=== PATIENT | male | born 1955 | race Caucasian/White ===

== ENCOUNTER → 2016-05-26 | Outpatient (REF) | payer SELFPAY ==
[~2016-05-26] MED LIST: AMLO5TAB2 PO; ATOR1TAB21 PO; GABA300C3 PO; IBUP800T23 PO; METO12TA PO; OMEP20CA3 PO; PEG1POW PO; PERCOCET PO; ZANA4TAB PO
[2016-05-26 11:05] LABS: BASO % 0.1 % (0.0-1.0); EOS % 17.6 % (0.0-3.0); LARGE UNSTAINED CELL # 0.1 K/mm3 (0.0-0.4); LARGE UNSTAINED CELL % 1.9 % (0.0-4.0); LYMPH % 17.3 % (24.0-44.0); MEAN CORPUSCULAR HGB CONC 34.5 g/dl (32.0-36.5); MEAN CORPUSCULAR VOLUME 87.1 fl (80.0-96.0); MONO # 0.4 K/mm3 (0.0-0.8); MONO % 6.1 % (0.0-5.0); NEUTROPHILS # 3.3 K/mm3 (1.8-7.7); NEUTROPHILS % 57.1 % (36.0-66.0); PLATELET COUNT, AUTOMATED 126 k/mm3 (150-450); RED CELL DISTRIBUTION WIDTH 12.9 % (11.5-14.5); WHITE BLOOD COUNT 5.7 K/mm3 (4.0-10.0)
[2016-05-26 11:29] LABS: ERYTHROCYTE SEDIMENTATION RATE 50 mm/hr (0-20)
[2016-05-26 11:33] LABS: ANION GAP 8 MEQ/L (8-16); BLOOD UREA NITROGEN 17 MG/DL (7-18); CALCIUM LEVEL 8.1 MG/DL (8.5-10.1); CARBON DIOXIDE LEVEL 27 MEQ/L (21-32); CHLORIDE LEVEL 105 MEQ/L (98-107); CREATININE FOR GFR 0.66 MG/DL (0.70-1.30); GLOMERULAR FILTRATION RATE > 60.0 (>56); GLUCOSE, FASTING 91 MG/DL (70-105); POTASSIUM SERUM 3.4 MEQ/L (3.5-5.1); SODIUM LEVEL 140 MEQ/L (136-145)
== END ==
LOC: M LAB REF 10:40
PROVIDERS: ATTEND Internal Medicine Infectious Disease
DX: M46.40 Discitis, unspecified, site unspecified (principal)

== ENCOUNTER → 2016-06-02 | Outpatient (REF) | payer SELFPAY ==
[2016-06-02 11:27] LABS: BASO % 0.1 % (0.0-1.0); EOS # 0.6 K/mm3 (0.0-0.50); EOS % 12.2 % (0.0-3.0); LARGE UNSTAINED CELL # 0.1 K/mm3 (0.0-0.4); LARGE UNSTAINED CELL % 1.8 % (0.0-4.0); LYMPH # 0.8 K/mm3 (1.5-4.5); LYMPH % 15.1 % (24.0-44.0); MEAN CORPUSCULAR HEMOGLOBIN 30.2 pg (27.0-33.0); MEAN CORPUSCULAR HGB CONC 34.5 g/dl (32.0-36.5); MEAN CORPUSCULAR VOLUME 87.5 fl (80.0-96.0); MONO # 0.4 K/mm3 (0.0-0.8); MONO % 7.4 % (0.0-5.0); NEUTROPHILS # 3.3 K/mm3 (1.8-7.7); NEUTROPHILS % 63.5 % (36.0-66.0); PLATELET COUNT, AUTOMATED 170 k/mm3 (150-450); RED CELL DISTRIBUTION WIDTH 13.1 % (11.5-14.5); WHITE BLOOD COUNT 5.2 K/mm3 (4.0-10.0)
[2016-06-02 12:03] LABS: ANION GAP 9 MEQ/L (8-16); BLOOD UREA NITROGEN 18 MG/DL (7-18); CARBON DIOXIDE LEVEL 27 MEQ/L (21-32); CHLORIDE LEVEL 105 MEQ/L (98-107); CREATININE FOR GFR 0.68 MG/DL (0.70-1.30); ERYTHROCYTE SEDIMENTATION RATE 51 mm/hr (0-20); GLOMERULAR FILTRATION RATE > 60.0 (>56); GLUCOSE, FASTING 97 MG/DL (70-105); POTASSIUM SERUM 3.3 MEQ/L (3.5-5.1); SODIUM LEVEL 141 MEQ/L (136-145)
== END ==
LOC: M LAB REF 11:14
PROVIDERS: ATTEND Internal Medicine Infectious Disease
DX: M46.40 Discitis, unspecified, site unspecified (principal)

== ENCOUNTER → 2016-06-05 | Outpatient (REF) | payer SELFPAY | LOC: M LAB REF 09:07 | PROVIDERS: ATTEND Internal Medicine Infectious Disease | DX: M46.40 Discitis, unspecified, site unspecified (principal) ==

== ENCOUNTER → 2016-06-09 | Outpatient (REF) | payer SELFPAY ==
[~2016-06-09] MED LIST changes: +ASPI81TA85 PO; +ATOR40TA PO; +METO-346 PO; +NEUR300C PO; +VANC10005 INJ
[2016-06-09 14:55] LABS: ANION GAP 10 MEQ/L (8-16); BLOOD UREA NITROGEN 15 MG/DL (7-18); CALCIUM LEVEL 8.1 MG/DL (8.5-10.1); CARBON DIOXIDE LEVEL 27 MEQ/L (21-32); CHLORIDE LEVEL 107 MEQ/L (98-107); CREATININE FOR GFR 0.57 MG/DL (0.70-1.30); GLOMERULAR FILTRATION RATE > 60.0 (>56); GLUCOSE, FASTING 89 MG/DL (70-105); SODIUM LEVEL 144 MEQ/L (136-145)
[2016-06-09 15:07] LABS: BASO % 0.4 % (0.0-1.0); EOS # 0.6 K/mm3 (0.0-0.50); EOS % 12.9 % (0.0-3.0); LARGE UNSTAINED CELL # 0.1 K/mm3 (0.0-0.4); LARGE UNSTAINED CELL % 2.2 % (0.0-4.0); LYMPH # 0.8 K/mm3 (1.5-4.5); LYMPH % 16.8 % (24.0-44.0); MEAN CORPUSCULAR HEMOGLOBIN 29.8 pg (27.0-33.0); MEAN CORPUSCULAR HGB CONC 34.2 g/dl (32.0-36.5); MEAN CORPUSCULAR VOLUME 87.2 fl (80.0-96.0); MONO # 0.3 K/mm3 (0.0-0.8); MONO % 6.8 % (0.0-5.0); NEUTROPHILS % 60.9 % (36.0-66.0); PLATELET COUNT, AUTOMATED 162 k/mm3 (150-450); RED CELL DISTRIBUTION WIDTH 13.4 % (11.5-14.5); WHITE BLOOD COUNT 4.8 K/mm3 (4.0-10.0)
[2016-06-09 15:47] LABS: ERYTHROCYTE SEDIMENTATION RATE 55 mm/hr (0-20)
== END ==
LOC: M LAB REF 13:04
PROVIDERS: ATTEND Internal Medicine Infectious Disease
DX: M46.40 Discitis, unspecified, site unspecified (principal)

== ENCOUNTER 2016-06-10 13:13 | Inpatient (IN) | payer BC, SELFPAY ==
[~2016-06-10] VITALS: Ht 180.3 cm; Wt 101.4 kg
[~2016-06-10 13:13] MED LIST changes: -ASPI81TA85 PO; -ATOR40TA PO; -METO-346 PO; -NEUR300C PO; -VANC10005 INJ
[2016-06-10] MEDS ORDERED: MORPHINE 4 MG/ML 1ML SYRINGE As Ordered ONE ×2 (14:04→16:05)
[2016-06-10 14:30] LABS: BASO % 0.4 % (0.0-1.0); EOS # 0.6 K/mm3 (0.0-0.50); EOS % 9.7 % (0.0-3.0); LARGE UNSTAINED CELL # 0.1 K/mm3 (0.0-0.4); LYMPH # 0.8 K/mm3 (1.5-4.5); LYMPH % 12.3 % (24.0-44.0); MEAN CORPUSCULAR HEMOGLOBIN 28.8 pg (27.0-33.0); MEAN CORPUSCULAR HGB CONC 33.3 g/dl (32.0-36.5); MEAN CORPUSCULAR VOLUME 86.6 fl (80.0-96.0); MONO # 0.4 K/mm3 (0.0-0.8); MONO % 6.6 % (0.0-5.0); NEUTROPHILS # 4.3 K/mm3 (1.8-7.7); PLATELET COUNT, AUTOMATED 180 k/mm3 (150-450); RED CELL DISTRIBUTION WIDTH 13.3 % (11.5-14.5); WHITE BLOOD COUNT 6.2 K/mm3 (4.0-10.0)
[2016-06-10 14:42] LABS: ANION GAP 11 MEQ/L (8-16); BLOOD UREA NITROGEN 12 MG/DL (7-18); CALCIUM LEVEL 8.9 MG/DL (8.5-10.1); CARBON DIOXIDE LEVEL 27 MEQ/L (21-32); CHLORIDE LEVEL 105 MEQ/L (98-107); CREATININE FOR GFR 0.67 MG/DL (0.70-1.30); GLOMERULAR FILTRATION RATE > 60.0 (>56); GLUCOSE, FASTING 121 MG/DL (70-105); POTASSIUM SERUM 3.3 MEQ/L (3.5-5.1); SODIUM LEVEL 143 MEQ/L (136-145)
[2016-06-10 15:40] LABS: ERYTHROCYTE SEDIMENTATION RATE 53 mm/hr (0-20)
--- NOTE | 2016-06-10 16:26 | REP ---
MRI LUMBAR SPINE WITHOUT AND WITH CONTRAST: HISTORY: Discitis. CONTRAST: ProHance 20 mL. COMPARISON: 04/30/2016 and 05/07/2016. Decreased signal intensity on T2-weighted images is present in the L1-2 through L4-5 intervertebral discs. The discs are decreased in height. These findings are consistent with disc degeneration. A diffuse disc bulge is present at the L1-2 level. There is minimal compression of the thecal sac. The L1 nerves exit the neural foramina without compression. A diffuse disc bulge is present at the L2-3 level. There is minimal compression of the thecal sac. The L2 nerves exit the neural foramina without compression. A diffuse disc bulge is present at the L3-4 level. There is minimal compression of the thecal sac. The L3 nerves exit the neural foramina without compression. A diffuse disc bulge is present at the L4-5 level. There is hypertrophy of the ligamenta flava and posterior articulating facets. These findings produce minimal central canal stenosis. The L4 nerves exit the neural foramina without compression. Increased signal intensity on T2-weighted images is present in the L5-S1 intervertebral disc. The intervertebral disc is decreased in height. There is mild heterogeneous enhancement of the intervertebral disc and adjacent endplates of the L5 and S1 vertebral bodies. 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 Enhancing paravertebral and epidural soft tissue components are present. A diffuse disc bulge and small left paracentral and intraforaminal disc protrusion are present. There is mild compression of the thecal sac and left S1 nerve as it exits the thecal sac. There is hypertrophy of the posterior articulating facets. There is compression of the left L5 nerve in the neural foramen. The right L5 nerve exits the neural foramen without compression. The conus medullaris is normal in appearance terminating at the level of the L1 intervertebral disc. Hemangiomas are present in the T12, L1 and L4 vertebral bodies. There is an old compression fracture of the L1 vertebral body with minimal height loss. IMPRESSION: 1. Diffuse disc bulges at the L1-2 through L3-4 levels with minimal thecal sac compression. 2. Minimal central canal stenosis at the L4-5 level secondary to disc bulge, ligamentous and facet hypertrophy. 3. Findings consistent with discitis osteomyelitis at the L5-S1 level. This is associated with paravertebral and epidural enhancing soft tissue consistent with a phlegmon. A diffuse disc bulge and small left paracentral and intraforaminal disc protrusion are present. These findings produce mild compression of the thecal sac and left S1 nerve as it exits the thecal sac. Signed by Tyler Pearson MD 06/10/2016 04:31 P
[2016-06-10] MEDS ORDERED: NEUR300C PO (16:36)
[2016-06-10] MEDS ORDERED: METO-346 PO (16:36)
[2016-06-10] MEDS ORDERED: ATOR40TA PO (16:36)
[2016-06-10] MEDS ORDERED: ASPI81TA85 PO (16:36)
[2016-06-10] MEDS ORDERED: VANC10005 INJ (16:36)
[2016-06-10] MEDS ORDERED: POTASSIUM CHL PWD 20 MEQ PACKET As Ordered ONE (16:59)
[2016-06-10] MEDS ORDERED: PERCOCET 5MG/325MG TAB PO PRN (18:30)
[2016-06-10] MEDS ORDERED: PERCOCET 5MG/325MG TAB As Ordered ONE (19:15)
--- NOTE | 2016-06-10 20:07 | HPE ---
DATE OF ADMISSION: 06/10/2016 PRIMARY CARE PROVIDER: Dr. Kiser REASON FOR ADMISSION: Back pain. HISTORY OF PRESENT ILLNESS: Patient is a 61-year-old male, past medical history significant for chronic back pain recently diagnosed with discitis, hypertension, hyperlipidemia, gastroesophageal reflux disease, presented to the emergency room complaining of worsening back pain for the past 2 weeks. The patient was recently in the hospital from April 28 for about 2 weeks where he was diagnosed with discitis. He was sent home on IV antibiotics, vancomycin. He was following up with Dr. Kiser until recently when his pain started to worsen. His CRP started to trend up. He was sent to the emergency room by Dr. Kiser who saw him in the emergency room and recommended admission for back biopsy. The patient denied any fevers or chills. Denied any chest pain, palpitation. Denied any shortness of breath. Denied any nausea, vomiting or diarrhea. Denied any worsening weakness in his lower extremities. However he stated that due to pain he has been using his walker recently. Denied any paresthesias, denied any urinary or bowel incontinence or retention. He was admitted under hospitalist service. REVIEW OF SYSTEMS: 12-point review of systems obtained all of which was negative except for those mentioned above. ALLERGIES: No known drug allergies. HOME MEDICATIONS: - amlodipine 5 mg by mouth daily - atorvastatin 40 mg by mouth daily - gabapentin 300 mg three times a day - metoprolol 12.5 mg two times a day - ibuprofen 100 mg 1 tablet as needed for pain - omeprazole 20 mg 1 tablet daily - Percocet 5-325 two tablets every 6 hours as needed for pain - Zanaflex 4 mg every 8 hours as needed for pain - aspirin 81 mg daily - vancomycin IV twice a day PAST MEDICAL HISTORY: Gastroesophageal reflux disease, chronic back pain, hyperlipidemia, hypertension, discitis recently diagnosed. SURGERIES: No past surgical history. SOCIAL HISTORY: The patient quit smoking a year ago, smokes one pack a day for many years. Lives at home. No alcohol use. FAMILY HISTORY: Noncontributory. PHYSICAL EXAMINATION: Vitals: On admission blood pressure 144/91, pulse 106, respiratory rate 18, temperature 96.4+, pulse O2 97% on room air. HEENT: Pupils equal, round and reactive to light and accommodation. Neck: Supple. No jugular venous distention (JVD). Lungs clear bilaterally. Abdomen: Soft, nontender, nondistended. Cardiac: Regular rate and rhythm. Extremities: No clubbing, cyanosis or edema. Neuro: Cranial nerves II-XII grossly intact. No focal deficits. LABORATORY FINDINGS: WBC 6.2, hemoglobin 11.6, hematocrit 34.8, platelet count 180. Sodium 143, potassium 3.3, chloride 105, BUN 12, creatinine 0.67. Fasting glucose 121, magnesium pending. MRI of the lumbar spine was done in the emergency room which showed diffuse bulge in L1-L2 through L3-L4 with minimal thecal sac compression, minimal central canal stenosis at L4-L5 secondary to disc bulging and facet hypertrophy. Findings consistent with discitis osteomyelitis at L5-S1. Associated paravertebral epidural enhancing soft tissue consistent with phlegmon. Diffuse disc bulge, mild compression of the thecal sac left S1 nerve. ASSESSMENT/PLAN: 1. Discitis osteomyelitis. The patient has been on vancomycin. Dr. Kiser has been following the patient as outpatient. She sent him in for a CT guided biopsy in the morning as well as pain management. Dr. Heredia was consulted. He saw the patient in the emergency room and reviewed the imaging and did not feel that the patient had any abscess. He agreed with the plan for biopsy. At this time we will hold the patient's vancomycin dose today and put in for a CT-guided biopsy in the morning. Will continue to trend CRPs and sedimentation rate. Will consult Dr. Kiser while in the hospital for antibiotic management. 2. History of hypertension. Resume the patient's home medication. 3. History of her hyperlipidemia. Continue the patient's home medication. 4. Back pain. Will continue the patient's Percocet. Will increase dose to 10-325, one tablet every 4-6 hours as well as morphine for breakthrough pain, hold for sedation, lethargy. 5. History of gastroesophageal reflux disease. Continue the patient's omeprazole 20 mg daily. 6. DVT prophylaxis, Lovenox while in bed.
--- NOTE | 2016-06-10 20:46 | EDDOCDS ---
Physician Documentation [facility] Name: Julio Cesar Ponce Age: 61 yrs Sex: Male : 1955 Arrival Date: 06/10/2016 Time: 13:13 Bed 12 Private MD: Jonnie Kiser N. Disposition: 06/10/16 17:40 Hospitalization ordered by Yesenia Armenta for Inpatient Admission. Preliminary diagnosis are Low back pain, Osteomyelitis of vertebra, lumbosacral region - L5-S1, Discitis, unspecified, lumbosacral region - L5-S1. - Bed requested for PCU. - Status is Inpatient Admission. terence - Condition is Stable. - Problem is new. - Symptoms are unchanged. Historical: - Allergies: no known allergies; - Home Meds: 1. amlodipine 5 mg Oral tab 1 tab once daily (Last dose: 06/10/2016) 2. atorvastatin 40 mg oral tab 1 tab once daily (Last dose: 06/10/2016) 3. gabapentin 300 mg Oral cap 1 cap 3 times per day (Last dose: 06/10/2016) 4. metoprolol tartrate 12.5 mg Oral tab 1 tab 2 times per day (Last dose: 06/10/2016) 5. ibuprofen 800 mg Oral tab 1 tab RPN 6. omeprazole 20 mg Oral cpDR 1 cap once daily (Last dose: 06/10/2016) 7. Percocet 5-325 mg Oral tab 2 tabs every 6 hours (Last dose: 06/10/2016 06:00) 8. Zanaflex 4 mg Oral tab 1 tab every 8 hours (Last dose: 06/10/2016) 9. aspirin 81 mg Oral tab 1 tab once daily (Last dose: 06/10/2016) 10. Vancocin 2000mg IV BID Oral (Last dose: 06/10/2016) - PMHx: GERD; Chronic Back pain; Hypercholesterolemia; Hypertension; Infection in back; - PSHx: none; - Social history: Smoking status: Patient states former smoker of tobacco. No barriers to communication noted, The patient speaks fluent Greenlandic. - Family history: Not pertinent. - : The pt / caregiver states he / she is not on anticoagulants. Home medication list is obtained from the patient. - Exposure Risk Screening:: None identified. Vital Signs: 06/10 13:16 BP 144 / 91; Pulse 106; Resp 18 S; Temp 96.4(O); Pulse Ox 97% on R/A; Weight 101.6 kg / gr2 223.99 lbs (R); Height 5 ft. 11 in. (180.34 cm) (R); Pain 9/10; 16:33 BP 148 / 70; Pulse 87; Resp 20; Temp 97.5; Pulse Ox 97% ; Pain 6/10; jam1 19:04 BP 149 / 84; Pulse 84; Resp 18; Temp 98.4; Pulse Ox 96% ; Pain 6/10; ajs 19:56 BP 160 / 79; Pulse 86; Resp 18; Temp 99.2(O); Pulse Ox 95% on R/A; Pain 3/10; dsf 20:41 BP 154 / 82; Pulse 78; Resp 18; Temp 97.9; Pulse Ox 96% ; Pain 2/10; mlc 13:16 Body Mass Index 31.24 (101.60 kg, 180.34 cm) gr2 MDM: 14:00 Misc. Nursing Order ordered. dt4 14:00 MRI Screening Tool - Place on chart, inform RN ordered. dt4 14:00 morphine 4 mg IVP once ordered. dt4 14:01 CBC with Diff Ordered. EDMS 14:01 Basic Metabolic Profile Ordered. EDMS 14:01 CRP Ordered. EDMS 14:01 Sed Rate Ordered. EDMS 14:16 MRI LS SPINE W/O FOLL WITH CON Ordered. EDMS 14:28 MRI Screening Tool - Place on chart, inform RN complete. jf3 15:21 Financial registration complete. mm15 15:29 heparin 100units/mL flush (PICC line) 2 ml IVP once; flush each port first with 10mL of dt4 NS followed by heparin ordered. 15:52 [facility] [place] Agreement was scanned into [employer] and attached to record. mm15 16:05 morphine 4 mg IVP once ordered. dt4 16:14 BED REQUEST+ADM ordered. EDMS 16:22 ED course: SPOKE WITH DR. KISER AT THIS TIME, STATED SHE WAS IN A MEETING AND WOULD COME dt4 DOWN TO SEE THIS PT WHEN THE MEETING WAS FINISHED. . 16:31 Potassium Chloride Packet 40 mEq PO once ordered. dt4 18:50 Admission / Observation Status ordered. EDMS 18:50 2 GRAM SODIUM DIET ordered. EDMS 19:01 MAGNESIUM LEVEL Ordered. EDMS 19:14 oxyCODONE-acetaminophen 5 mg-325 mg 2 tabs PO once; admission order ordered. dsf 19:32 CBC WITH DIFFERENTIAL Ordered. EDMS 19:32 COMPLETE COMPHRENSIVE METABOLI Ordered. EDMS 19:32 MAGNESIUM LEVEL Ordered. EDMS 19:43 CT guide needle placement Ordered. EDMS 19:43 NPO FOR TEST/PROCEDURE ordered. EDMS 19:44 C REACTIVE PROTEIN QUANTITATIV Ordered. EDMS 19:44 ERYTHROCYTE SEDIMENTATION RATE Ordered. EDMS 19:53 Admission / Observation Status ordered. EDMS Administered Medications: 14:21 Drug: morphine 4 mg [morphine 4 mg/mL intravenous cartridge (1 mL)] Route: IVP; Site: jf3 Implantable Access Device; 16:17 Drug: morphine 4 mg [morphine 4 mg/mL intravenous cartridge (1 mL)] Route: IVP; Site: kc3 Implantable Access Device; 17:10 Drug: heparin 100units/mL flush (PICC line) 2 ml [heparin flush (porcine) 100 unit/mL kc3 in 0.9 % sodium chloride IV kit (2 mL)] Route: IVP; Site: Implantable Access Device; 17:10 Drug: Potassium Chloride 40 mEq [potassium chloride 20 mEq oral packet (2 packets)] kc3 Route: PO; 19:24 Drug: oxyCODONE-acetaminophen 2 tabs [oxycodone-acetaminophen 5 mg-325 mg tablet (2 dsf tabs)] Route: PO; Signatures: Dispatcher [employer] EDLA Randal Kurtz RN RN dwg Newman, Jill New RN Eric Ac, Director Medical Economics Unit ml3 Valery Padron RN RN dsf Slate, Amanda ajs McGrath, Marlynn mm15 Jessy Winslow PA-C PA-C dt4 Edy Yang RN RN jf3 Crane, Kelsi RN kc3 The chart was reviewed and I authenticate all verbal orders and agree with the evaluation and treatment provided.Corrections: (The following items were deleted from the chart) 14:16 14:01 MRI-Spine, Lumbar with contrast+MR ordered. EDMS EDMS Attachments: 15:52 [facility] [place] Agreement mm15 MTDD
--- NOTE | 2016-06-10 20:46 | EDDOCDS ---
Nurse's Notes [facility] Name: Julio Cesar Ponce Age: 61 yrs Sex: Male : 1955 Arrival Date: 06/10/2016 Time: 13:13 Bed 12 Private MD: Jonnie Kiser N. Diagnosis: Low back pain;Osteomyelitis of vertebra, lumbosacral [id number];Discitis, unspecified, lumbosacral [id number] Presentation: 06/10 13:22 Presenting complaint: Patient states: Increased low back pain for 1-2 weeks. Sent from [facility] Dr. Kiser's off ice for MRI of back, presently has PICC line for IV antibiotics for infection in low back/spine. Adult Sepsis Screening: The patient does not have new or worsening altered mentation. Patient's respiratory rate is less than 22. Systolic blood pressure is greater than 100. Patient has a qSOFA score of 0- Negative Sepsis Screen. Suicide/Homicide risk assessment- the patient denies having any suicidal and/or homicidal ideations and does not present with any other emotional, behavioral or mental health complaints. Status: Patient is not a duplicating machine servicer or dependent. Transition of care: patient was received from Dr. Kiser's office. 13:22 Acuity: LESLEY Level 3 [facility] 13:22 Method Of Arrival: Wheelchair [facility] Triage Assessment: 13:30 General: Appears in no apparent distress. Pain: Pain currently is 8 out of 10 on a pain dwg scale. HIV screening NA for this visit Offered previously. Historical: - Allergies: no known allergies; - Home Meds: 1. amlodipine 5 mg Oral tab 1 tab once daily (Last dose: 06/10/2016) 2. atorvastatin 40 mg oral tab 1 tab once daily (Last dose: 06/10/2016) 3. gabapentin 300 mg Oral cap 1 cap 3 times per day (Last dose: 06/10/2016) 4. metoprolol tartrate 12.5 mg Oral tab 1 tab 2 times per day (Last dose: 06/10/2016) 5. ibuprofen 800 mg Oral tab 1 tab RPN 6. omeprazole 20 mg Oral cpDR 1 cap once daily (Last dose: 06/10/2016) 7. Percocet 5-325 mg Oral tab 2 tabs every 6 hours (Last dose: 06/10/2016 06:00) 8. Zanaflex 4 mg Oral tab 1 tab every 8 hours (Last dose: 06/10/2016) 9. aspirin 81 mg Oral tab 1 tab once daily (Last dose: 06/10/2016) 10. Vancocin 2000mg IV BID Oral (Last dose: 06/10/2016) - PMHx: GERD; Chronic Back pain; Hypercholesterolemia; Hypertension; Infection in back; - PSHx: none; - Social history: Smoking status: Patient states former smoker of tobacco. No barriers to communication noted, The patient speaks fluent Romansh. - Family history: Not pertinent. - : The pt / caregiver states he / she is not on anticoagulants. Home medication list is obtained from the patient. - Exposure Risk Screening:: None identified. Screenin:02 Screening information is obtained from the patient. Primary language is Romansh. Fall jam1 risk: No risks identified. Assistance ADL's: requires no assistance with activities of daily living. Abuse/DV Screen: The patient / caregiver reports he/she is: not in a situation that causes fear, pain or injury. Nutritional screening: No deficits noted. Exposure Risk Screening: None identified. Advance Directives: Currently, there is no health care proxy. There is no active DNR order. There is no living will. There is no Power of Direct Mail Coordinator. Advance directive information has not previously been placed in an [facility] medical record. Further advance directive information is declined. home support is adequate. Assessment: 14:28 Adult Sepsis Screening: The patient does not have new or worsening altered mentation. jf3 Patient's respiratory rate is less than 22. Systolic blood pressure is greater than 100. Patient has a qSOFA score of 0- Negative Sepsis Screen. General: Appears uncomfortable, Behavior is cooperative. Pain: Location: lumbar area, sacrum, left low back and right low back Pain currently is 10 out of 10 on a pain scale. Neurological: Level of Consciousness is awake, alert, Oriented to person, place, time. Cardiovascular: Capillary refill < 3 seconds Heart tones S1 S2 present Chest pain is denied. Respiratory: Airway is patent Respiratory effort is even, unlabored, Respiratory pattern is regular, symmetrical, Breath sounds are clear bilaterally. Denies shortness of breath. GI: Abdomen is non- distended Bowel sounds present X 4 quads. Abd is soft and non tender X 4 quads. Denies nausea, vomiting. Derm: Skin is normal. 16:17 General: Appears uncomfortable, Behavior is appropriate for age, cooperative. Pain: kc3 Location: right low back. Neurological: Level of Consciousness is awake, alert, obeys commands, Oriented to person, place, time. Respiratory: Airway is patent Respiratory effort is even, unlabored. Derm: Skin is pink, warm & dry. 17:20 General: Dr. Kiser in examining patient . dsf 17:36 General: Appears in no apparent distress, Behavior is appropriate for age, cooperative. dsf Pain: Location: sacrum and lumbar area. Neurological: Level of Consciousness is awake, alert. Cardiovascular: Capillary refill < 3 seconds. Respiratory: Airway is patent Respiratory effort is even, unlabored, Respiratory pattern is regular, symmetrical. Derm: Skin is pink, warm & dry. 19:24 General: Dr. Heredia in room examining patient . dsf 20:02 General: Appears in no apparent distress, comfortable, Behavior is cooperative. mlc General: pt given water. call light in reach. SO at bedside. Neurological: Level of Consciousness is awake, alert, Oriented to person, place, time. Respiratory: Airway is patent Respiratory effort is even, unlabored, Respiratory pattern is regular. Derm: Skin is pink, warm & dry. 20:02 Cardiovascular: Rhythm is regular. mlc 20:41 General: Appears in no apparent distress, comfortable, Behavior is cooperative. Pain: [facility] [place] currently is 2 out of 10 on a pain scale. Neurological: Level of Consciousness is awake, alert, Oriented to person, place, time. Respiratory: Airway is patent Respiratory effort is even, unlabored, Respiratory pattern is regular. Vital Signs: 13:16 BP 144 / 91; Pulse 106; Resp 18 S; Temp 96.4(O); Pulse Ox 97% on R/A; Weight 101.6 kg gr2 (R); Height 5 ft. 11 in. (180.34 cm) (R); Pain 9/10; 16:33 BP 148 / 70; Pulse 87; Resp 20; Temp 97.5; Pulse Ox 97% ; Pain 6/10; jam1 19:04 BP 149 / 84; Pulse 84; Resp 18; Temp 98.4; Pulse Ox 96% ; Pain 6/10; ajs 19:56 BP 160 / 79; Pulse 86; Resp 18; Temp 99.2(O); Pulse Ox 95% on R/A; Pain 3/10; dsf 20:41 BP 154 / 82; Pulse 78; Resp 18; Temp 97.9; Pulse Ox 96% ; Pain 2/10; mlc 13:16 Body Mass Index 31.24 (101.60 kg, 180.34 cm) gr2 Vitals: 13:16 Log In Time: June 10, 2016 at 13:16. gr2 ED Course: 13:16 Patient visited by Giulia Francois. gr2 13:16 Jonnie Kiser is Private Physician. gr2 13:16 Patient moved to Waiting gr2 13:17 Patient visited by Giulia Francois. gr2 13:17 Patient moved to Pre RCE gr2 13:25 Triage Initiated dwg 13:38 Patient moved to Triage 2 dwg 13:44 [facility]C [facility] dt4 13:44 Cash Merritt MD is Attending Physician. dt4 13:44 Patient visited by Jessy Winslow PA-C. dt4 13:58 Patient moved to I4 / M4 srm 14:02 Pt greeted and oriented to ED. Patient advised of names of staff involved in care, jam1 location of call calderon, wait times and NPO status. Patient has correct armband on for positive identification. Placed in gown. Bed in low position. Call light in reach. Side rails up X2. Adult w/ patient. Door closed. 14:28 The patient / caregiver is instructed regarding the plan of care and ED course. jf3 14:28 Accessed PICC line in patient's right arm. Clean & dry. Dressing intact. Good blood jf3 return. Flushes easily. No procedures done that require assistance. 14:31 Patient visited by Edy Yang RN. jf3 14:49 Patient moved to MRI dsf 15:43 Patient moved to I4 / M4 jam1 15:52 [facility] [place] [facility] Payment Agreement was scanned into [employer] and attached to record. mm15 16:17 Patient visited by Negin Armenta RN. kc3 16:33 MRI LS SPINE W/O FOLL WITH CON Returned. EDMS 17:11 Patient visited by Negin Armenta RN. kc3 17:26 Patient visited by Jessy Winslow PA-C. dt4 17:37 Patient visited by Valery Padron RN. dsf 17:39 Rosalie Armentasanthosh is Hospitalizing Provider. dt4 18:56 Patient visited by Amy Goncalves. ajs 19:02 Patient visited by Kelli Lund RN. af2 19:05 Patient visited by Amy Goncalves. ajs 19:24 Patient visited by Valery Padron RN. dsf 19:24 MAGNESIUM LEVEL Sent. dsf 19:56 Roxanne Rojas,MOLINA is Primary Nurse. ajs 19:56 Lise Anguiano RN is Primary Nurse. ajs 19:56 Patient moved to 12 ajs 19:56 Report given to Lise AUGUSTE. dsf 20:03 Patient visited by Lise Anguiano RN. mlc 20:08 Primary Nurse role handed off by Roxanne Rojas RN sls1 20:08 Patient visited by Valery Padron RN. dsf 20:35 Patient visited by Lise Anguiano RN. mlc Administered Medications: 14:21 Drug: morphine 4 mg [morphine 4 mg/mL intravenous cartridge (1 mL)] Route: IVP; Site: 3 Implantable Access Device; 16:17 Drug: morphine 4 mg [morphine 4 mg/mL intravenous cartridge (1 mL)] Route: IVP; Site: kc3 Implantable Access Device; 17:10 Drug: heparin 100units/mL flush (PICC line) 2 ml [heparin flush (porcine) 100 unit/mL kc3 in 0.9 % sodium chloride IV kit (2 mL)] Route: IVP; Site: Implantable Access Device; 17:10 Drug: Potassium Chloride 40 mEq [potassium chloride 20 mEq oral packet (2 packets)] kc3 Route: PO; 19:24 Drug: oxyCODONE-acetaminophen 2 tabs [oxycodone-acetaminophen 5 mg-325 mg tablet (2 dsf tabs)] Route: PO; Output: 17:35 Urine: 150.00ml (Voided); Total: 150.00ml. dsf Order Results: Lab Order: CBC with Diff; SPEC'M 06/10/16 14:16 Test: WHITE BLOOD COUNT; Value: 6.2; Range: 4.0-10.0; Units: K/mm3; Status: F Test: RED BLOOD COUNT; Value: 4.02; Range: 4.30-6.10; Abnormal: Below low normal; Units: M/mm3; Status: F Test: HEMOGLOBIN; Value: 11.6; Range: 14.0-18.0; Abnormal: Below low normal; Units: g/dl; Status: F Test: HEMATOCRIT; Value: 34.8; Range: 42.0-52.0; Abnormal: Below low normal; Units: %; Status: F Test: MEAN CORPUSCULAR VOLUME; Value: 86.6; Range: 80.0-96.0; Units: fl; Status: F Test: MEAN CORPUSCULAR HEMOGLOBIN; Value: 28.8; Range: 27.0-33.0; Units: pg; Status: F Test: MEAN CORPUSCULAR HGB CONC; Value: 33.3; Range: 32.0-36.5; Units: g/dl; Status: F Test: RED CELL DISTRIBUTION WIDTH; Value: 13.3; Range: 11.5-14.5; Units: %; Status: F Test: PLATELET COUNT, AUTOMATED; Value: 180; Range: 150-450; Units: k/mm3; Status: F Test: NEUTROPHILS %; Value: 69.0; Range: 36.0-66.0; Abnormal: Above high normal; Units: %; Status: F Test: LYMPH %; Value: 12.3; Range: 24.0-44.0; Abnormal: Below low normal; Units: %; Status: F Test: MONO %; Value: 6.6; Range: 0.0-5.0; Abnormal: Above high normal; Units: %; Status: F Test: EOS %; Value: 9.7; Range: 0.0-3.0; Abnormal: Above high normal; Units: %; Status: F Test: BASO %; Value: 0.4; Range: 0.0-1.0; Units: %; Status: F Test: LARGE UNSTAINED CELL %; Value: 2.0; Range: 0.0-4.0; Units: %; Status: F Test: NEUTROPHILS #; Value: 4.3; Range: 1.8-7.7; Units: K/mm3; Status: F Test: LYMPH #; Value: 0.8; Range: 1.5-4.5; Abnormal: Below low normal; Units: K/mm3; Status: F Test: MONO #; Value: 0.4; Range: 0.0-0.8; Units: K/mm3; Status: F Test: EOS #; Value: 0.6; Range: 0.0-0.50; Abnormal: Above high normal; Units: K/mm3; Status: F Test: BASO #; Value: 0.0; Range: 0.0-0.2; Units: K/mm3; Status: F Test: LARGE UNSTAINED CELL #; Value: 0.1; Range: 0.0-0.4; Units: K/mm3; Status: F Lab Order: Basic Metabolic Profile; [facility] 06/10/16 14:16 Test: GLUCOSE, FASTING; Value: 121; Range: 70-105; Abnormal: Above high normal; Units: MG/DL; Status: F Test: BLOOD UREA NITROGEN; Value: 12; Range: 7-18; Units: MG/DL; Status: F Test: CREATININE FOR GFR; Value: 0.67; Range: 0.70-1.30; Abnormal: Below low normal; Units: MG/DL; Status: F Test: GLOMERULAR FILTRATION RATE; Value: > 60.0; Range: >56; Status: F Test: SODIUM LEVEL; Value: 143; Range: 136-145; Units: MEQ/L; Status: F Test: POTASSIUM SERUM; Value: 3.3; Range: 3.5-5.1; Abnormal: Below low normal; Units: MEQ/L; Status: F Test: CHLORIDE LEVEL; Value: 105; Range: 98-107; Units: MEQ/L; Status: F Test: CARBON DIOXIDE LEVEL; Value: 27; Range: 21-32; Units: MEQ/L; Status: F Test: ANION GAP; Value: 11; Range: 8-16; Units: MEQ/L; Status: F Test: CALCIUM LEVEL; Value: 8.9; Range: 8.5-10.1; Units: MG/DL; Status: F Test Note: ; Units are mL/min/1.73 m2 Chronic Kidney Disease Staging per NKF: Stage I & II GFR >=60 Normal to Mildly Decreased Stage III GFR 30-59 Moderately Decreased Stage IV GFR 15-29 Severely Decreased Stage V GFR <15 Very Little GFR Left ESRD GFR <15 on SIGNING AGENT Lab Order: CRP; SPEC'M 06/10/16 14:16 Test: C REACTIVE PROTEIN QUANTITATIV; Value: 2.27; Range: 0.00-0.30; Abnormal: Above high normal; Units: MG/DL; Status: F Lab Order: Sed Rate; SPEC'M 06/10/16 14:16 Test: ERYTHROCYTE SEDIMENTATION RATE; Value: 53; Range: 0-20; Abnormal: Above high normal; Units: mm/hr; Status: F Lab Order: MAGNESIUM LEVEL; SPEC'M 06/10/16 19:20 Test: MAGNESIUM LEVEL; Value: 1.5; Range: 1.8-2.4; Abnormal: Below low normal; Units: MG/DL; Status: F Radiology Order: MRI LS SPINE W/O FOLL WITH CON Test: MRI LS SPINE W/O FOLL WITH CON REASON FOR EXAMINATION: low back pain, in treatment for discitis; MRI LUMBAR SPINE WITHOUT AND WITH CONTRAST:; ; HISTORY: Discitis.; ; CONTRAST: ProHance 20 mL.; ; COMPARISON: 04/30/2016 and 05/07/2016.; ; Decreased signal intensity on T2-weighted images is present in the L1-2 through; L4-5 intervertebral discs. The discs are decreased in height. These findings are; consistent with disc degeneration.; ; A diffuse disc bulge is present at the L1-2 level. There is minimal compression; of the thecal sac. The L1 nerves exit the neural foramina without compression.; ; A diffuse disc bulge is present at the L2-3 level. There is minimal compression; of the thecal sac. The L2 nerves exit the neural foramina without compression.; ; A diffuse disc bulge is present at the L3-4 level. There is minimal compression; of the thecal sac. The L3 nerves exit the neural foramina without compression.; ; A diffuse disc bulge is present at the L4-5 level. There is hypertrophy of the; ligamenta flava and posterior articulating facets. These findings produce minimal; central canal stenosis. The L4 nerves exit the neural foramina without; compression.; ; Increased signal intensity on T2-weighted images is present in the L5-S1; intervertebral disc. The intervertebral disc is decreased in height. There is; mild heterogeneous enhancement of the intervertebral disc and adjacent endplates; of the L5 and S1 vertebral bodies. These findings are consistent with discitis; osteomyelitis. Enhancing paravertebral and epidural soft tissue components are; present. A diffuse disc bulge and small left paracentral and intraforaminal disc; protrusion are present. There is mild compression of the thecal sac and left S1; nerve as it exits the thecal sac. There is hypertrophy of the posterior; articulating facets. There is compression of the left L5 nerve in the neural; foramen. The right L5 nerve exits the neural foramen without compression.; ; The conus medullaris is normal in appearance terminating at the level of the L1; intervertebral disc. Hemangiomas are present in the T12, L1 and L4 vertebral; bodies. There is an old compression fracture of the L1 vertebral body with; minimal height loss.; ; IMPRESSION:; ; 1. Diffuse disc bulges at the L1-2 through L3-4 levels with minimal thecal sac; compression.; ; 2. Minimal central canal stenosis at the L4-5 level secondary to disc bulge,; ligamentous and facet hypertrophy.; ; 3. Findings consistent with discitis osteomyelitis at the L5-S1 level. This is; associated with paravertebral and epidural enhancing soft tissue consistent with; a phlegmon. A diffuse disc bulge and small left paracentral and intraforaminal; disc protrusion are present. These findings produce mild compression of the; thecal sac and left S1 nerve as it exits the thecal sac.; ; ; Signed by; Tyler Pearson MD 06/10/2016 04:31 P; Outcome: 17:40 Decision to Hospitalize by Provider. dt4 20:34 Admission hand-off: Report Faxed Fax receipt verified by MOLINA Castanon states pt can come to [facility] [place] in 15 minutes. 20:41 Discharge Assessment: Patient awake, alert and oriented x 3. No cognitive and/or mlc functional deficits noted. Patient verbalized understanding of disposition instructions. patient administered narcotics - yes. Patient was admitted to the hospital or transferred to another facility. The following High Risk Discharge criteria are identified: None. Admitted to PCU accompanied by nurse, accompanied by tech, via stretcher, on monitor, with chart. Condition: good Condition: stable. CT Study completed. Property sent home with patient. 20:45 Patient left the ED. may Signatures: Dispatcher [facility] [employer] Randal Kaufman RN RN dwg Evita Zimmerman, RN RN srm Bedolla, Leeanne Ramirez, RN RN Dora To, LANGUAGE INTERPRETER LANGUAGE INTERPRETER jam1 Valery Padron,RN RN jatinder Goncalves, Zoya Pedro, RN RN sls1 Giulia Francois 2 Elvie Salgado mm15 Lise Anguiano,RN RN mlc Goldy, Jessy, PA-C PA-C dt4 Kelli Lund,RN RN af2 Negin Armenta,RN RN kc3 Edy Yang,RN RN jf3 MTDD
[2016-06-10 20:56] VITALS: BP 156/85
[2016-06-10] MEDS: tiZANidine 4 MG TAB PO SCH (21:00)
[2016-06-10] MEDS: GABAPENTIN 300 MG CAP PO SCH (21:39)
[2016-06-10] MEDS: ATORVASTATIN 20 MG TAB PO SCH (21:39)
[2016-06-10] MEDS: METOPROLOL TART 12.5 MG PER 1/2 TAB PO SCH (21:39)
[2016-06-10] MEDS: PERCOCET 5MG/325MG TAB PO PRN (23:08)
[2016-06-10 23:44] VITALS: BP 145/78
--- NOTE | 2016-06-11 01:11 | CR ---
DATE OF CONSULTATION: 06/10/2016 The patient was seen in the emergency room as requested by Dr. Yesenia Armenta. I have seen him in April for severe pain in his low back and radicular pain since getting hurt at work, which exacerbated his chronic low back pain. The patient is presenting essentially the same picture as he presented on 04/30/2016. Findings suggestive of discitis, though previously he had only soft radicular findings, though clinical picture was always consistent with discitis , no clear cut diagnosis established for several days, till his work up became positive for discitis and he was treated accordingly and empirically with antibiotics by Rashel Valle. . Patient said he did start improving since injuring his back, and while on antibiotics. injury, and felt so good that hje could play golf. His symptoms returned and now the pain is, he claims, worse than ever. He once again appears to be in severe agony and turning and tossing in his stretcher bed in the emergency room. Patient claimed most of it has been in the low back. It will get worse with any movement at the lumbosacral spine or even slight rolling over in bed can cause marked exacerbation of pain. Occasionally, he would notice radiating pain down the posterolateral aspect of his thighs on either side. PAST MEDICAL HISTORY: Unchanged and essentially unremarkable according to him and his except for history of tobacco and alcohol abuse in the past. PREADMISSION MEDICATIONS: Per EHR. ALLERGIES: He denies any. PHYSICAL EXAMINATION: On examination, he was found to be awake and alert, oriented times three. Pupils are equal and reactive. Extraocular movements are full, though once again coarse. I was able to get him off the stretcher and he took few steps, though complained of pain in his low back. Straight leg raising and foraminal compression tests are negative on either side. The left ankle jerk is absent and he has mild L5-S1 deficits, more so on the left. There is moderate paraspinal spasm as before. The left ankle jerk is now absent. The right is diminished. Remaining deep tendon reflexes are nearly symmetrical and brisk and as before there were slow brachial radial reflexes and once again he denies any pertinent symptoms pertaining to cervical spondylosis, radiculopathy or myelopathy. He continues to show intermittent bilateral josse inattention and has mild cerebellar decompensation with occasional dysrhythmia, dysmetria and visual overshooting. Plantars remain downgoing. There is no clonus or sensory level. MRI shows marked worsening of his pathology at L5-S1. It appears he has an inflammatory phlegmon extending into the canal along with focal herniation of the disc on the left at L5-S1, which is worse than in the past. There is also significant inflammatory tissue with marked enhancement intervertebrally, mostly on the left side displacing the psoas muscle. There is considerable enhancement along the disc, particularly on the left and this is causing a significant area of lateral recess and lateral recess canal stenosis. IMPRESSION: 1. Discitis and osteomyelitis L5-S. 2. Lumbar spondylosis. 3. Cervical spondylosis. 4. Obesity. PLAN AND RECOMMENDATIONS: Various options were discussed with the patient. I gave him the option of surgery to clean the epidural phlegmon and obtain culture. Patient states he does not like surgery, though he is willing to have a percutaneous aspiration or biopsy and he says if that does not help or is unable to get a tissue diagnosis, he will consider going for surgery, though he and his understand guarded prognosis and grave outlook and the hazardous nature of the surgery, which would be decompression at least at L5-S1 on the left. he understood, my rationale, and scope of surgical exploration, and is aware of all risks and possible sequel associated with such a procedure I would admit in the progressive care unit (PCU) with frequent neurological and vital sign checks, at least every 2 hours and will request to notify me if there is any change. His bladder is somewhat palpable and thus would also get a postvoid bladder scan. I texted my recommendations to Drs. Kiser and Yesenia Armenta. Thank you very much for letting me evaluate this patient. Should you have any questions, please do not hesitate to call. OWEN
--- NOTE | 2016-06-11 02:57 | CR ---
DATE OF CONSULTATION: 06/10/2016 I was asked to consult by the emergency room provider for evaluation of worsening spondylodiscitis. HISTORY OF PRESENT ILLNESS: Mr. Ponce is a 61-year-old gentleman who was hospitalized from 04/29 until 05/16 with spondylodiscitis. Initially, the patient came to the hospital with severe acute low back pain and fever. It took about a week before discitis showed up on his MRI. He was treated with intravenous (IV) antibiotics, initially Rocephin and then he received vancomycin which he has been receiving since at least 05/09. He was discharged home on 05/16 walking with a walker with tolerable pain. He continued to improve until about couple weeks ago when he started noticing more worsening pain. Initially, he had stopped taking the Percocet then he started using it again. He was depending more and more on his walker and today he stated his pain was like 7/10 and could not tolerate any more pain. He was taking ibuprofen 600, Tylenol and two Percocet today without relief. He was told by our triage nurse in the office to come to the emergency room to be evaluated. He had an MRI done in the emergency room (ER), which showed worsening spondylodiscitis at L5-S1. He denied any nausea, vomiting or diarrhea. He had no fever or chills. His lower extremity strength is stable, but he was having severe pain intermittently radiated to the right and the left, more so to the right side to then all the way to the knee. He denied any urinary or bowel incontinence or retention. He had been seen in consultation by Dr. Heredia prior admission and Dr. Heredia was consulted today in the emergency room as well. PAST MEDICAL HISTORY: Gastroesophageal reflux disease, chronic back pain usually not more than a 1/10 for which he never took too many medications, hyperlipidemia, hypertension, L5-S1 discitis diagnosed in April 2016 that has kept him out of work. PAST SURGICAL HISTORY: Negative. SOCIAL HISTORY: Quit smoking a year ago. He smoked a pack a day for many years. He drank alcohol regularly, 3-4 beers a day, but not in the past 6 weeks. He lives at home with his . He has children. 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 ALLERGIES: No known drug allergies. MEDICATIONS: - amlodipine 5 mg daily - aspirin 81 mg by mouth daily - Prilosec 20 mg by mouth daily - Lipitor 40 mg by mouth nightly - gabapentin 300 mg three times a day - metoprolol 12.5 mg by mouth twice a day - Zanaflex 4 mg by mouth three times a day - ibuprofen 800 mg by mouth every 6 hours as needed - Percocet two tablets every 4 hours as needed - morphine 2 mg IV every 4 hours as needed LABORATORY DATA: White count is 6.2, hemoglobin 11.6, hematocrit 34.8, platelets 180, 69% neutrophils, 12% lymphocytes, 6% monocytes. ESR is 53. Sodium 143, potassium 3.3, chloride 105, bicarbonate 27, BUN 12, creatinine 0.67, glucose 121, calcium 8.9, magnesium 1.5, CRP 2.27. MRI discussed with Dr. Pearson shows findings consistent with discitis, osteomyelitis at L5-S1. This is associated with a paravertebral and epidural enhancing soft tissue consistent with a phlegmon. According to Dr. Pearson, there is nothing to be drained, There is a diffuse disc bulge and small left paracentral disc protrusion present. These findings are producing mild compression of thecal sac and left S1 nerve root as well. Minimal central canal stenosis at L4-L5 secondary to disc bulge. PHYSICAL EXAMINATION: He is a healthy looking gentleman in no acute distress, but in a lot of pain, especially when asked to sit up in the bed. He was in tears from excruciating pain. Temperature is 97.5, blood pressure 148/78, pulse 87, respirations 20, oxygen saturation 97% on room air. Heart: Normal S1, S2. No murmurs, rubs or gallops. Lungs are clear. No wheezes, rales or rhonchi. Abdomen: Obese, soft, nontender. No visceromegaly. Back: No costovertebral angle (CVA) tenderness, significant L5-S1 tenderness. Extremities: Motor strength is fairly good. There is some giveaway weakness due to pain, but strength is fairly normal. He has positive straight leg raising on both sides at around 30, 40 degrees. IMPRESSION: This is a 61-year-old gentleman who has been on intravenous (IV) antibiotics for at least now 5 weeks with a combination of ceftriaxone and followed by IV vancomycin at a dose of 1.5 grams every 12 hours. He was admitted with worsening back pain and radiculopathy. The patient's CRP is stable between 1.8 and 2.2. His sedimentation rate has remained around 50s, but clinically he has deteriorated, especially with pain. That could be related to compression of nerve roots, worsening discitis or degenerative disc disease as well. PLAN: Admit the patient for pain management. Schedule a CT-guided biopsy of the phlegmon and/or disc space to make sure there is no pathogen that has not been covered by vancomycin, although I would not expect that to be the case as he clinically definitely improved over the past 4 weeks. If the patient has methicillin-susceptible Staphylococcus aureus (MSSA) on culture, he would benefit from use of a beta lactam instead, such as cefazolin or nafcillin, which would be ideal coverage for MSSA instead of vancomycin. Case has been discussed with Dr. Armenta. She will schedule CT-guided biopsy in the morning. Aerobic and anaerobic culture should be sent. Consult Dr. Heredia who already saw him in the emergency room (ER).
[2016-06-11] MEDS: PERCOCET 5MG/325MG TAB PO PRN ×5 (03:02→20:28)
[2016-06-11 06:18] VITALS: BP 154/86
[2016-06-11 06:49] LABS: BASO % 0.6 % (0.0-1.0); EOS # 0.7 K/mm3 (0.0-0.50); EOS % 12.1 % (0.0-3.0); LARGE UNSTAINED CELL # 0.1 K/mm3 (0.0-0.4); LARGE UNSTAINED CELL % 1.3 % (0.0-4.0); LYMPH # 1.3 K/mm3 (1.5-4.5); LYMPH % 19.3 % (24.0-44.0); MEAN CORPUSCULAR HEMOGLOBIN 28.8 pg (27.0-33.0); MEAN CORPUSCULAR HGB CONC 32.5 g/dl (32.0-36.5); MEAN CORPUSCULAR VOLUME 88.6 fl (80.0-96.0); MONO # 0.4 K/mm3 (0.0-0.8); NEUTROPHILS # 3.6 K/mm3 (1.8-7.7); NEUTROPHILS % 59.7 % (36.0-66.0); PLATELET COUNT, AUTOMATED 179 k/mm3 (150-450); RED CELL DISTRIBUTION WIDTH 14.2 % (11.5-14.5); WHITE BLOOD COUNT 6.1 K/mm3 (4.0-10.0)
[2016-06-11 07:23] LABS: ALBUMIN 3.1 GM/DL (3.2-5.2); ALBUMIN/GLOBULIN RATIO 0.91 (1.00-1.93); ALKALINE PHOSPHATASE 92 U/L (45-117); ALT/SGPT 26 U/L (12-78); ANION GAP 8 MEQ/L (8-16); AST/SGOT 10 U/L (15-37); BILIRUBIN,TOTAL 0.4 MG/DL (0.2-1.0); BLOOD UREA NITROGEN 11 MG/DL (7-18); CALCIUM LEVEL 8.3 MG/DL (8.5-10.1); CARBON DIOXIDE LEVEL 29 MEQ/L (21-32); CHLORIDE LEVEL 103 MEQ/L (98-107); CREATININE FOR GFR 0.71 MG/DL (0.70-1.30); GLOMERULAR FILTRATION RATE > 60.0 (>56); GLUCOSE, FASTING 92 MG/DL (70-105); MAGNESIUM LEVEL 1.4 MG/DL (1.8-2.4); POTASSIUM SERUM 3.5 MEQ/L (3.5-5.1); SODIUM LEVEL 140 MEQ/L (136-145); TOTAL PROTEIN 6.5 GM/DL (6.4-8.2)
[2016-06-11 07:26] LABS: ERYTHROCYTE SEDIMENTATION RATE 59 mm/hr (0-20)
[2016-06-11] MEDS ORDERED: POTASSIUM CHLORIDE 10 MEQ SR TABLET PO ONE (07:30)
[2016-06-11 08:00] VITALS: BP 142/83
[2016-06-11] MEDS: ASPIRIN 81 MG ENTERIC TAB PO SCH (09:00)
[2016-06-11] MEDS: MAG SULF 1GM/100ML (MAG RUN) 1 GM in APPROPRIATE DILUENT 1 EA IV SCH ×2 (09:23→10:38)
[2016-06-11] MEDS: OMEPRAZOLE 20 MG CAP PO SCH (09:24)
[2016-06-11] MEDS: tiZANidine 4 MG TAB PO SCH ×3 (09:24→20:27)
[2016-06-11] MEDS: GABAPENTIN 300 MG CAP PO SCH ×3 (09:24→20:17)
[2016-06-11] MEDS: METOPROLOL TART 12.5 MG PER 1/2 TAB PO SCH ×2 (09:25→20:17)
[2016-06-11] MEDS: amLODIPine 5 MG TAB PO SCH (09:25)
[2016-06-11 12:10] VITALS: BP 134/82
[2016-06-11] MEDS ORDERED: LIDOCAINE 1% MDV 20ML VIAL As Ordered ONE (13:49)
[2016-06-11 16:00] VITALS: BP 134/82
--- NOTE | 2016-06-11 16:18 | REP ---
CT GUIDED L5-S1 DISC BIOPSY: The procedure was performed under the personal supervision of Dr. Chambers. The risks and benefits of the procedure were explained to the patient and informed consent was obtained. The L5-S1 disc space was localized using CT guidance. The skin was prepped and draped in a sterile fashion. 1% Xylocaine was used as a local anesthetic. Using CT guidance a 19/20-gauge coaxial needle biopsy system was inserted and then advanced into the disc. A few drops of red colored fluid was withdrawn and sent to the lab. The patient tolerated the procedure well and there were no immediate complications. Reviewed by ALEXI Sifuentes 06/11/2016 04:56 PEdited and Signed by Tigre Chambers MD 06/11/2016 05:30 P
--- NOTE | 2016-06-11 18:21 | IPN ---
DATE: 06/11/2016 SUBJECTIVE: Patient seen and examined. Denies any fever or chills. Reported back pain worsened with movement. Denies any numbness or tingling sensation. Denies any lower extremity weakness. Denies any incontinence. Denies any chest pain, pressure, discomfort. VITAL SIGNS: Temperature 96.4, pulse 75, respirations 18, blood pressure 142/83, pulse oximetry 95% on room air. LABORATORY DATA: WBC 6.1, hemoglobin and hematocrit 11.1 over 34.1, platelets 179. Chemistry: Sodium 140, potassium 3.5, chloride 103, bicarbonate 29, BUN 11, creatinine 0.71. PHYSICAL EXAMINATION: GENERAL: Patient alert and oriented times three in no acute distress. Obese. Appears comfortable. HEENT: Normocephalic, atraumatic. Pupils equal, round, and reactive bilaterally. NECK: Supple. PULMONARY: Bilaterally clear to auscultation. CARDIAC: Regular rate and rhythm. Normal S1, S2. ABDOMEN: Soft, nontender, nondistended. EXTREMITIES: No clubbing, cyanosis or edema. NEUROLOGIC: Cranial nerves II through XII grossly intact. No focal deficits. ASSESSMENT AND PLAN: This is a 61-year-old male patient with underlying medical history of chronic back pain, recently diagnosed discitis, treated with vancomycin as outpatient, hypertension, dyslipidemia, gastroesophageal reflux disease (GERD), who presented to the emergency room with worsening back pain. 1. Discitis, osteomyelitis. The patient has been on vancomycin. Dr. Kiser has been following the patient as outpatient. Infectious disease, Dr. Kiser, consulted. Recommended CT-guided biopsy. Dr. Heredia has also been consulted from neurosurgery. Surgical option was discussed with the patient. The patient felt that he would like to followup with CT-guided biopsy and conservative management first prior to attempting surgery, given the risks involved, and Dr. Heredia has showed after reviewing the image, that there is no abscess. Followup erythrocyte sedimentation rate (ESR) and C-reactive protein (CRP) appreciated. Holding antibiotics for CT-guided biopsy. Dr. Heredia would like to follow the patient for neurologic checks every two hours. Bladder scan to followup residuals. 2. History of hypertension. Continue home medication. 3. Dyslipidemia. Continue home medication. 4. Back pain. Continue pain medication as ordered. 5. History of gastroesophageal reflux disease (GERD). Continue proton pump inhibitor (PPI). 6. Deep venous thrombosis (DVT) prophylaxis. Will place the patient on heparin subcutaneous. DISPOSITION: Pending infectious disease cultures and neurosurgery's final recommendation.
--- NOTE | 2016-06-11 18:50 | PHACANCOPD ---
PHARMACY VANCOMYCIN DOSING Pt Demographics Demographics Patient Age:61 , Weight:103.300 , Gender: male Adjusted Body Weight Events Past 24 Hours Events Past 24 Hours: NO: Change in CrCl, Dialysis, Diuretic Therapy, Elevation in WBC, Fever, Other, Pending Diagnostics, Pending Procedures Vancomycin Vancomycin Target Ranges: 15-20 mcg/ml Vancomycin Load Y/N: Yes Load Dose Date Time Vancomycin Load Dose: 2GM Date: 06/11/16 Time: 20:00 Vancomycin Dose Date: 06/12/16. Current Vancomycin Dose: [1GM IV Q8H start 06/12 02:00] Intermittent Dosing?: No Labs Labs Laboratory Tests 06/11/16 06:30 Calcium Level 8.3 L, Aspartate Amino Transf (AST/SGOT) 10 L, Alanine Aminotransferase (ALT/SGPT) 26, Alkaline Phosphatase 92, Total Bilirubin 0.4, Total Protein 6.5, Albumin 3.1 L, Red Blood Count 3.85 L, Mean Corpuscular Volume 88.6, Mean Corpuscular Hemoglobin 28.8, Mean Corpuscular Hemoglobin Concent 32.5, Red Cell Distribution Width 14.2, Neutrophils (%) (Auto) 59.7, Lymphocytes (%) (Auto) 19.3 L, Monocytes (%) (Auto) 7.0 H, Eosinophils (%) (Auto ) 12.1 H, Basophils (%) (Auto) 0.6, Neutrophils # (Auto) 3.6, Lymphocytes # ( Auto) 1.3 L, Monocytes # (Auto) 0.4, Eosinophils # (Auto) 0.7 H, Basophils # ( Auto) 0.0 Micro Microbiology 06/10/16 Blood Culture, Received Pending 06/11/16 Anaerobic Culture, Received Pending 06/11/16 Gram Stain, Received Pending 06/11/16 Abscess Culture, Received Pending Creatinine Clearance Date:06/11/16. Creatinine Clearance: [>60 ml/min]. Pending Labs 06/13/16: VANCO TROUGGH 10 AM DOSE Assessment and Plan Maintaining Current Dose?: Yes Reason for dose change: Other Pharmacist Note Pharmacist Note Date: 06/11/16. Pharm.D. note: 61YO MALE, 71" in HEIGHT, 103KG in WEIGHT. ADMITTED WITH CONTINUED OSTEOMYELITIS, SPONDYLODISCITIS of L5-S1 SINCE EARLY APRIL 2016. WE ARE ASKED TO RE-START VANCOMYCIN THERAPY. WE WILL INITIATE WITH VANCO 2GM STATING AT 20:00 THIS EVENING FOLLOWED BY VANCO 1GM IV Q8H STARTING AT 02:00 06/12/16. WE WILL DRAW A VANCO TR WHEN HE IS AT STEADY STATE: Thursday06/13/16 AT 09:00 WHICH IS 60 MINUTES PRIOR TO HIS 10AM DOSE. GOAL TROUGH 15-20 mcg/ml [place] Pharm.D. [facility] Jun 11, 2016 18:50
[2016-06-11 19:53] VITALS: BP 131/75
[2016-06-11] MEDS ORDERED: VANCOMYCIN HCL 1,000 MG, VIAL MATE ADAPTER 1 EACH in D5W 250 ML IV ONE ×2 (20:00→21:00)
[2016-06-11] MEDS: SODIUM CHLORIDE 0.9% INJ 10 ML SYR IV PRN (20:16)
[2016-06-11] MEDS: ATORVASTATIN 20 MG TAB PO SCH (20:17)
[2016-06-11] MEDS: HEPARIN SOD (PORCINE) 5000 UNITS/ML VIAL SQ SCH (20:17)
[2016-06-11 23:59] VITALS: BP 150/75
[2016-06-12] MEDS: PERCOCET 5MG/325MG TAB PO PRN ×5 (00:28→21:11)
[2016-06-12] MEDS: VANCOMYCIN HCL 1,000 MG, VIAL MATE ADAPTER 1 EACH in D5W 250 ML IV SCH ×3 (02:20→17:41)
[2016-06-12 04:00] VITALS: BP 126/74
[2016-06-12] MEDS: SODIUM CHLORIDE 0.9% INJ 10 ML SYR IV SCH ×2 (05:33→10:08)
[2016-06-12 06:20] LABS: BASO % 0.3 % (0.0-1.0); EOS # 0.6 K/mm3 (0.0-0.50); EOS % 11.1 % (0.0-3.0); LARGE UNSTAINED CELL # 0.1 K/mm3 (0.0-0.4); LARGE UNSTAINED CELL % 1.6 % (0.0-4.0); LYMPH # 0.8 K/mm3 (1.5-4.5); LYMPH % 14.4 % (24.0-44.0); MEAN CORPUSCULAR HEMOGLOBIN 29.3 pg (27.0-33.0); MEAN CORPUSCULAR HGB CONC 33.6 g/dl (32.0-36.5); MEAN CORPUSCULAR VOLUME 87.1 fl (80.0-96.0); MONO # 0.3 K/mm3 (0.0-0.8); MONO % 5.8 % (0.0-5.0); NEUTROPHILS # 3.8 K/mm3 (1.8-7.7); NEUTROPHILS % 66.8 % (36.0-66.0); PLATELET COUNT, AUTOMATED 173 k/mm3 (150-450); RED CELL DISTRIBUTION WIDTH 13.4 % (11.5-14.5); WHITE BLOOD COUNT 5.8 K/mm3 (4.0-10.0)
[2016-06-12 07:00] LABS: ALBUMIN 3.2 GM/DL (3.2-5.2); ALBUMIN/GLOBULIN RATIO 0.76 (1.00-1.93); ALKALINE PHOSPHATASE 99 U/L (45-117); ALT/SGPT 27 U/L (12-78); ANION GAP 8 MEQ/L (8-16); AST/SGOT 18 U/L (15-37); BILIRUBIN,TOTAL 0.5 MG/DL (0.2-1.0); BLOOD UREA NITROGEN 15 MG/DL (7-18); CALCIUM LEVEL 8.8 MG/DL (8.5-10.1); CARBON DIOXIDE LEVEL 27 MEQ/L (21-32); CHLORIDE LEVEL 101 MEQ/L (98-107); CREATININE FOR GFR 0.79 MG/DL (0.70-1.30); GLOMERULAR FILTRATION RATE > 60.0 (>56); GLUCOSE, FASTING 95 MG/DL (70-105); MAGNESIUM LEVEL 2.1 MG/DL (1.8-2.4); POTASSIUM SERUM 3.9 MEQ/L (3.5-5.1); SODIUM LEVEL 136 MEQ/L (136-145); TOTAL PROTEIN 7.4 GM/DL (6.4-8.2)
[2016-06-12 08:00] VITALS: BP 145/69
[2016-06-12] MEDS: GABAPENTIN 300 MG CAP PO SCH ×3 (09:45→21:07)
[2016-06-12] MEDS: tiZANidine 4 MG TAB PO SCH ×3 (09:45→21:08)
[2016-06-12] MEDS: METOPROLOL TART 12.5 MG PER 1/2 TAB PO SCH ×2 (09:45→21:07)
[2016-06-12] MEDS: amLODIPine 5 MG TAB PO SCH (09:45)
[2016-06-12] MEDS: ASPIRIN 81 MG ENTERIC TAB PO SCH (09:45)
[2016-06-12] MEDS: OMEPRAZOLE 20 MG CAP PO SCH (09:45)
[2016-06-12] MEDS: HEPARIN SOD (PORCINE) 5000 UNITS/ML VIAL SQ SCH ×2 (09:46→21:08)
[2016-06-12 12:00] VITALS: BP 126/76
[2016-06-12] MEDS: MIRALAX *UNIT DOSE* 17GM PACKET PO SCH (14:12)
[2016-06-12] MEDS: SENOKOT S TAB PO SCH ×2 (14:13→21:07)
[2016-06-12 16:00] VITALS: BP 151/73
--- NOTE | 2016-06-12 18:49 | IPN ---
DATE: 06/12/2016 The patient is seen and examined. Reported back pain persisted, but able to do some ambulation with physical therapy (PT) with a walker. Denies any fevers or chills, chest pain, pressure or discomfort. VITAL SIGNS: Temperature 99, pulse 82, respirations 18, blood pressure 151/73, pulse oximetry 92% on room air. LABORATORY DATA: WBC 5.8, hemoglobin and hematocrit 11.7/34.8, platelets 173. Sodium 136, potassium 3.9, chloride 101, bicarbonate 27, BUN 15, creatinine 0.79. PHYSICAL EXAMINATION: GENERAL: The patient is alert and oriented times three. In no acute distress. Obese. Appears comfortable. HEENT: Normocephalic, atraumatic. Pupils are equal, round and reactive bilaterally. NECK: Supple. PULMONARY: Bilaterally clear to auscultation. CARDIAC: Regular rate and rhythm. Normal S1, S2. ABDOMEN: Soft, nontender. Nondistended. Positive bowel sounds. EXTREMITIES: No clubbing, cyanosis, or edema. NEUROLOGIC: Cranial nerves II through XII grossly intact. No focal deficits. ASSESSMENT AND PLAN: This is a 61-year-old male patient with underlying medical history of chronic back pain, recently diagnosed with discitis and treated with vancomycin as an outpatient, hypertension, dyslipidemia, gastroesophageal reflux disease (GERD), who presented to the emergency room with worsening back pain and decreased ability to ambulate. 1. Discitis with osteomyelitis. The patient has been on vancomycin. Dr. Kiser has been following the patient as an outpatient. Infectious disease, Dr. Kiser, consulted. Status post CT guided biopsy. Followup culture. Dr. Kiser has been consulted. Recommending progressive care unit (PCU) monitoring. Surgical options discussed with the patient. The patient would like to pursue more conservative management with CT guided biopsy and antibiotics first before attempting surgery. Given the risk involved, Dr. Heredia has reviewed the image and determined that there is no abscess. Followup ESR and C-reactive protein appreciated. Antibiotic, vancomycin, restarted by Dr. Heredia, who would like the patient to be monitored in progressive care unit (PCU) with neuro checks and bladder scans to follow residual. 2. History of hypertension. Continue home medications. 3. Dyslipidemia . Continue home medications. 4. Back pain. Continue pain medication as ordered. 5. History of GERD. Continue proton pump inhibitor. 6. Deep vein thrombosis (DVT) prophylaxis. We will place the patient on heparin subcutaneously. DISPOSITION: Pending cultures, final recommendation from infectious disease.
[2016-06-12 20:00] VITALS: BP 149/73
[2016-06-12] MEDS: ATORVASTATIN 20 MG TAB PO SCH (21:07)
[2016-06-12] MEDS: CEFTAROLINE FOSAMIL 600 MG in D5W MINI-BAG PLUS 50 ML IV SCH (21:07)
--- NOTE | 2016-06-12 21:46 | EDDOCDS ---
Physician Documentation [facility] Name: Julio Cesar Ponce Age: 61 yrs Sex: Male : 1955 Arrival Date: 06/10/2016 Time: 13:13 Bed 12 Private MD: Jonnie Kiser N. Disposition: 06/10/16 17:40 Hospitalization ordered by Yesenia Armenta for Inpatient Admission. Preliminary diagnosis are Low back pain, Osteomyelitis of vertebra, lumbosacral region - L5-S1, Discitis, unspecified, lumbosacral region - L5-S1. - Bed requested for PCU. - Status is Inpatient Admission. terence - Condition is Stable. - Problem is new. - Symptoms are unchanged. Historical: - Allergies: no known allergies; - Home Meds: 1. amlodipine 5 mg Oral tab 1 tab once daily (Last dose: 06/10/2016) 2. atorvastatin 40 mg oral tab 1 tab once daily (Last dose: 06/10/2016) 3. gabapentin 300 mg Oral cap 1 cap 3 times per day (Last dose: 06/10/2016) 4. metoprolol tartrate 12.5 mg Oral tab 1 tab 2 times per day (Last dose: 06/10/2016) 5. ibuprofen 800 mg Oral tab 1 tab RPN 6. omeprazole 20 mg Oral cpDR 1 cap once daily (Last dose: 06/10/2016) 7. Percocet 5-325 mg Oral tab 2 tabs every 6 hours (Last dose: 06/10/2016 06:00) 8. Zanaflex 4 mg Oral tab 1 tab every 8 hours (Last dose: 06/10/2016) 9. aspirin 81 mg Oral tab 1 tab once daily (Last dose: 06/10/2016) 10. Vancocin 2000mg IV BID Oral (Last dose: 06/10/2016) - PMHx: GERD; Chronic Back pain; Hypercholesterolemia; Hypertension; Infection in back; - PSHx: none; - Social history: Smoking status: Patient states former smoker of tobacco. No barriers to communication noted, The patient speaks fluent [place]. - Family history: Not pertinent. - : The pt / caregiver states he / she is not on anticoagulants. Home medication list is obtained from the patient. - Exposure Risk Screening:: None identified. Vital Signs: 06/10 13:16 BP 144 / 91; Pulse 106; Resp 18 S; Temp 96.4(O); Pulse Ox 97% on R/A; Weight 101.6 kg / gr2 223.99 lbs (R); Height 5 ft. 11 in. (180.34 cm) (R); Pain 9/10; 16:33 BP 148 / 70; Pulse 87; Resp 20; Temp 97.5; Pulse Ox 97% ; Pain 6/10; jam1 19:04 BP 149 / 84; Pulse 84; Resp 18; Temp 98.4; Pulse Ox 96% ; Pain 6/10; ajs 19:56 BP 160 / 79; Pulse 86; Resp 18; Temp 99.2(O); Pulse Ox 95% on R/A; Pain 3/10; dsf 20:41 BP 154 / 82; Pulse 78; Resp 18; Temp 97.9; Pulse Ox 96% ; Pain 2/10; mlc 13:16 Body Mass Index 31.24 (101.60 kg, 180.34 cm) gr2 MDM: 14:00 Misc. Nursing Order ordered. dt4 14:00 MRI Screening Tool - Place on chart, inform RN ordered. dt4 14:00 morphine 4 mg IVP once ordered. dt4 14:01 CBC with Diff Ordered. EDMS 14:01 Basic Metabolic Profile Ordered. EDMS 14:01 CRP Ordered. EDMS 14:01 Sed Rate Ordered. EDMS 14:16 MRI LS SPINE W/O FOLL WITH CON Ordered. EDMS 14:28 MRI Screening Tool - Place on chart, inform RN complete. jf3 15:21 Financial registration complete. mm15 15:29 heparin 100units/mL flush (PICC line) 2 ml IVP once; flush each port first with 10mL of dt4 NS followed by heparin ordered. 15:52 [facility] Payment Agreement was scanned into [employer] and attached to record. mm15 16:05 morphine 4 mg IVP once ordered. dt4 16:14 BED REQUEST+ADM ordered. EDMS 16:22 ED course: SPOKE WITH DR. KISER AT THIS TIME, STATED SHE WAS IN A MEETING AND WOULD COME dt4 DOWN TO SEE THIS PT WHEN THE MEETING WAS FINISHED. . 16:31 Potassium Chloride Packet 40 mEq PO once ordered. dt4 18:50 Admission / Observation Status ordered. EDMS 18:50 2 GRAM SODIUM DIET ordered. EDMS 19:01 MAGNESIUM LEVEL Ordered. EDMS 19:14 oxyCODONE-acetaminophen 5 mg-325 mg 2 tabs PO once; admission order ordered. dsf 19:32 CBC WITH DIFFERENTIAL Ordered. EDMS 19:32 COMPLETE COMPHRENSIVE METABOLI Ordered. EDMS 19:32 MAGNESIUM LEVEL Ordered. EDMS 19:43 CT guide needle placement Ordered. EDMS 19:43 NPO FOR TEST/PROCEDURE ordered. EDMS 19:44 C REACTIVE PROTEIN QUANTITATIV Ordered. EDMS 19:44 ERYTHROCYTE SEDIMENTATION RATE Ordered. EDMS 19:53 Admission / Observation Status ordered. EDMS 20:47 ERYTHROCYTE SEDIMENTATION RATE Ordered. EDMS 20:47 C REACTIVE PROTEIN QUANTITATIV Ordered. EDMS 06/11 11:07 T-Sheet-- Draft Copy was scanned into [employer] and attached to record. gb Administered Medications: 06/10 14:21 Drug: morphine 4 mg [morphine 4 mg/mL intravenous cartridge (1 mL)] Route: IVP; Site: 3 Implantable Access Device; 16:17 Drug: morphine 4 mg [morphine 4 mg/mL intravenous cartridge (1 mL)] Route: IVP; Site: 3 Implantable Access Device; 17:10 Drug: heparin 100units/mL flush (PICC line) 2 ml [heparin flush (porcine) 100 unit/mL kc3 in 0.9 % sodium chloride IV kit (2 mL)] Route: IVP; Site: Implantable Access Device; 17:10 Drug: Potassium Chloride 40 mEq [potassium chloride 20 mEq oral packet (2 packets)] kc3 Route: PO; 19:24 Drug: oxyCODONE-acetaminophen 2 tabs [oxycodone-acetaminophen 5 mg-325 mg tablet (2 dsf tabs)] Route: PO; Signatures: Dispatcher [employer] EDMS Randal Kurtz RN Leeanne Yeboah RN Katey Feldman, Reg Reg gb Eric Lipscomb, Lathe Puller Unit ml3 Valery Padron RN RN dsf Slate, Amanda ajs McGrath, Marlynn mm15 Jessy Winslow, PA-C PA-C dt4 Edy Yang RN RN jf3 Crane, Kelsi RN kc3 The chart was reviewed and I authenticate all verbal orders and agree with the evaluation and treatment provided.Corrections: (The following items were deleted from the chart) 14:16 14:01 MRI-Spine, Lumbar with contrast+MR ordered. EDMS EDMS Attachments: 15:52 [facility] Payment Agreement mm15 06/11 11:07 T-Sheet-- Draft Copy gb Chart Complete MTDD
--- NOTE | 2016-06-12 21:46 | EDDOCDS ---
Physician Documentation [facility] Name: Julio Cesar Ponce Age: 61 yrs Sex: Male : 1955 Arrival Date: 06/10/2016 Time: 13:13 Bed 12 Private MD: Jonnie Kiser N. Disposition: 06/10/16 17:40 Hospitalization ordered by Yesenia Armenta for Inpatient Admission. Preliminary diagnosis are Low back pain, Osteomyelitis of vertebra, lumbosacral region - L5-S1, Discitis, unspecified, lumbosacral region - L5-S1. - Bed requested for PCU. - Status is Inpatient Admission. terenec - Condition is Stable. - Problem is new. - Symptoms are unchanged. Historical: - Allergies: no known allergies; - Home Meds: 1. amlodipine 5 mg Oral tab 1 tab once daily (Last dose: 06/10/2016) 2. atorvastatin 40 mg oral tab 1 tab once daily (Last dose: 06/10/2016) 3. gabapentin 300 mg Oral cap 1 cap 3 times per day (Last dose: 06/10/2016) 4. metoprolol tartrate 12.5 mg Oral tab 1 tab 2 times per day (Last dose: 06/10/2016) 5. ibuprofen 800 mg Oral tab 1 tab RPN 6. omeprazole 20 mg Oral cpDR 1 cap once daily (Last dose: 06/10/2016) 7. Percocet 5-325 mg Oral tab 2 tabs every 6 hours (Last dose: 06/10/2016 06:00) 8. Zanaflex 4 mg Oral tab 1 tab every 8 hours (Last dose: 06/10/2016) 9. aspirin 81 mg Oral tab 1 tab once daily (Last dose: 06/10/2016) 10. Vancocin 2000mg IV BID Oral (Last dose: 06/10/2016) - PMHx: GERD; Chronic Back pain; Hypercholesterolemia; Hypertension; Infection in back; - PSHx: none; - Social history: Smoking status: Patient states former smoker of tobacco. No barriers to communication noted, The patient speaks fluent [place]. - Family history: Not pertinent. - : The pt / caregiver states he / she is not on anticoagulants. Home medication list is obtained from the patient. - Exposure Risk Screening:: None identified. Vital Signs: 06/10 13:16 BP 144 / 91; Pulse 106; Resp 18 S; Temp 96.4(O); Pulse Ox 97% on R/A; Weight 101.6 kg / gr2 223.99 lbs (R); Height 5 ft. 11 in. (180.34 cm) (R); Pain 9/10; 16:33 BP 148 / 70; Pulse 87; Resp 20; Temp 97.5; Pulse Ox 97% ; Pain 6/10; jam1 19:04 BP 149 / 84; Pulse 84; Resp 18; Temp 98.4; Pulse Ox 96% ; Pain 6/10; ajs 19:56 BP 160 / 79; Pulse 86; Resp 18; Temp 99.2(O); Pulse Ox 95% on R/A; Pain 3/10; dsf 20:41 BP 154 / 82; Pulse 78; Resp 18; Temp 97.9; Pulse Ox 96% ; Pain 2/10; mlc 13:16 Body Mass Index 31.24 (101.60 kg, 180.34 cm) gr2 MDM: 14:00 Misc. Nursing Order ordered. dt4 14:00 MRI Screening Tool - Place on chart, inform RN ordered. dt4 14:00 morphine 4 mg IVP once ordered. dt4 14:01 CBC with Diff Ordered. EDMS 14:01 Basic Metabolic Profile Ordered. EDMS 14:01 CRP Ordered. EDMS 14:01 Sed Rate Ordered. EDMS 14:16 MRI LS SPINE W/O FOLL WITH CON Ordered. EDMS 14:28 MRI Screening Tool - Place on chart, inform RN complete. jf3 15:21 Financial registration complete. mm15 15:29 heparin 100units/mL flush (PICC line) 2 ml IVP once; flush each port first with 10mL of dt4 NS followed by heparin ordered. 15:52 [facility] Payment Agreement was scanned into [employer] and attached to record. mm15 16:05 morphine 4 mg IVP once ordered. dt4 16:14 BED REQUEST+ADM ordered. EDMS 16:22 ED course: SPOKE WITH DR. KISER AT THIS TIME, STATED SHE WAS IN A MEETING AND WOULD COME dt4 DOWN TO SEE THIS PT WHEN THE MEETING WAS FINISHED. . 16:31 Potassium Chloride Packet 40 mEq PO once ordered. dt4 18:50 Admission / Observation Status ordered. EDMS 18:50 2 GRAM SODIUM DIET ordered. EDMS 19:01 MAGNESIUM LEVEL Ordered. EDMS 19:14 oxyCODONE-acetaminophen 5 mg-325 mg 2 tabs PO once; admission order ordered. dsf 19:32 CBC WITH DIFFERENTIAL Ordered. EDMS 19:32 COMPLETE COMPHRENSIVE METABOLI Ordered. EDMS 19:32 MAGNESIUM LEVEL Ordered. EDMS 19:43 CT guide needle placement Ordered. EDMS 19:43 NPO FOR TEST/PROCEDURE ordered. EDMS 19:44 C REACTIVE PROTEIN QUANTITATIV Ordered. EDMS 19:44 ERYTHROCYTE SEDIMENTATION RATE Ordered. EDMS 19:53 Admission / Observation Status ordered. EDMS 20:47 ERYTHROCYTE SEDIMENTATION RATE Ordered. EDMS 20:47 C REACTIVE PROTEIN QUANTITATIV Ordered. EDMS 06/11 11:07 T-Sheet-- Draft Copy was scanned into [employer] and attached to record. gb Administered Medications: 06/10 14:21 Drug: morphine 4 mg [morphine 4 mg/mL intravenous cartridge (1 mL)] Route: IVP; Site: 3 Implantable Access Device; 16:17 Drug: morphine 4 mg [morphine 4 mg/mL intravenous cartridge (1 mL)] Route: IVP; Site: 3 Implantable Access Device; 17:10 Drug: heparin 100units/mL flush (PICC line) 2 ml [heparin flush (porcine) 100 unit/mL kc3 in 0.9 % sodium chloride IV kit (2 mL)] Route: IVP; Site: Implantable Access Device; 17:10 Drug: Potassium Chloride 40 mEq [potassium chloride 20 mEq oral packet (2 packets)] kc3 Route: PO; 19:24 Drug: oxyCODONE-acetaminophen 2 tabs [oxycodone-acetaminophen 5 mg-325 mg tablet (2 dsf tabs)] Route: PO; Signatures: Dispatcher MedHost EDMS Randal Kurtz RN Leeanne Yeboah RN Katey Feldman, Reg Reg gb Eric Lipscomb, Financial Assistance Advisor Unit ml3 Valery Padron RN RN dsf Slate, Amanda ajs McGrath, Marlynn mm15 Jessy Winslow, PA-C PA-C dt4 Edy Yang RN RN jf3 Crane, Kelsi RN kc3 The chart was reviewed and I authenticate all verbal orders and agree with the evaluation and treatment provided.Corrections: (The following items were deleted from the chart) 14:16 14:01 MRI-Spine, Lumbar with contrast+MR ordered. EDMS EDMS Attachments: 15:52 [facility] Payment Agreement mm15 06/11 11:07 T-Sheet-- Draft Copy gb Chart Complete MTDD
--- NOTE | 2016-06-12 21:47 | EDDOCDS ---
Nurse's Notes [facility] Name: Julio Cesar Ponce Age: 61 yrs Sex: Male : 1955 Arrival Date: 06/10/2016 Time: 13:13 Bed 12 Private MD: Jonnie Kiser N. Diagnosis: Low back pain;Osteomyelitis of vertebra, lumbosacral [id number];Discitis, unspecified, lumbosacral [id number] Presentation: 06/10 13:22 Presenting complaint: Patient states: Increased low back pain for 1-2 weeks. Sent from [facility] Dr. Kiser's off ice for MRI of back, presently has PICC line for IV antibiotics for infection in low back/spine. Adult Sepsis Screening: The patient does not have new or worsening altered mentation. Patient's respiratory rate is less than 22. Systolic blood pressure is greater than 100. Patient has a qSOFA score of 0- Negative Sepsis Screen. Suicide/Homicide risk assessment- the patient denies having any suicidal and/or homicidal ideations and does not present with any other emotional, behavioral or mental health complaints. 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 Transition of care: patient was received from Dr. Kiser's office. 13:22 Acuity: LESLEY Level 3 [facility] 13:22 Method Of Arrival: Wheelchair [facility] Triage Assessment: 13:30 General: Appears in no apparent distress. Pain: Pain currently is 8 out of 10 on a pain dwg scale. HIV screening NA for this visit Offered previously. Historical: - Allergies: no known allergies; - Home Meds: 1. amlodipine 5 mg Oral tab 1 tab once daily (Last dose: 06/10/2016) 2. atorvastatin 40 mg oral tab 1 tab once daily (Last dose: 06/10/2016) 3. gabapentin 300 mg Oral cap 1 cap 3 times per day (Last dose: 06/10/2016) 4. metoprolol tartrate 12.5 mg Oral tab 1 tab 2 times per day (Last dose: 06/10/2016) 5. ibuprofen 800 mg Oral tab 1 tab RPN 6. omeprazole 20 mg Oral cpDR 1 cap once daily (Last dose: 06/10/2016) 7. Percocet 5-325 mg Oral tab 2 tabs every 6 hours (Last dose: 06/10/2016 06:00) 8. Zanaflex 4 mg Oral tab 1 tab every 8 hours (Last dose: 06/10/2016) 9. aspirin 81 mg Oral tab 1 tab once daily (Last dose: 06/10/2016) 10. Vancocin 2000mg IV BID Oral (Last dose: 06/10/2016) - PMHx: GERD; Chronic Back pain; Hypercholesterolemia; Hypertension; Infection in back; - PSHx: none; - Social history: Smoking status: Patient states former smoker of tobacco. No barriers to communication noted, The patient speaks fluent [place]. - Family history: Not pertinent. - : The pt / caregiver states he / she is not on anticoagulants. Home medication list is obtained from the patient. - Exposure Risk Screening:: None identified. Screenin:02 Screening information is obtained from the patient. Primary language is Citizen Of [place]. Fall jam1 risk: No risks identified. Assistance ADL's: requires no assistance with activities of daily living. Abuse/DV Screen: The patient / caregiver reports he/she is: not in a situation that causes fear, pain or injury. Nutritional screening: No deficits noted. Exposure Risk Screening: None identified. Advance Directives: Currently, there is no health care proxy. There is no active DNR order. There is no living will. There is no Power of Card Player. Advance directive information has not previously been placed in an [facility] medical record. Further advance directive information is declined. home support is adequate. Assessment: 14:28 Adult Sepsis Screening: The patient does not have new or worsening altered mentation. jf3 Patient's respiratory rate is less than 22. Systolic blood pressure is greater than 100. Patient has a qSOFA score of 0- Negative Sepsis Screen. General: Appears uncomfortable, Behavior is cooperative. Pain: Location: lumbar area, sacrum, left low back and right low back Pain currently is 10 out of 10 on a pain scale. Neurological: Level of Consciousness is awake, alert, Oriented to person, place, time. Cardiovascular: Capillary refill < 3 seconds Heart tones S1 S2 present Chest pain is denied. Respiratory: Airway is patent Respiratory effort is even, unlabored, Respiratory pattern is regular, symmetrical, Breath sounds are clear bilaterally. Denies shortness of breath. GI: Abdomen is non- distended Bowel sounds present X 4 quads. Abd is soft and non tender X 4 quads. Denies nausea, vomiting. Derm: Skin is normal. 16:17 General: Appears uncomfortable, Behavior is appropriate for age, cooperative. Pain: kc3 Location: right low back. Neurological: Level of Consciousness is awake, alert, obeys commands, Oriented to person, place, time. Respiratory: Airway is patent Respiratory effort is even, unlabored. Derm: Skin is pink, warm & dry. 17:20 General: Dr. Kiser in examining patient . dsf 17:36 General: Appears in no apparent distress, Behavior is appropriate for age, cooperative. dsf Pain: Location: sacrum and lumbar area. Neurological: Level of Consciousness is awake, alert. Cardiovascular: Capillary refill < 3 seconds. Respiratory: Airway is patent Respiratory effort is even, unlabored, Respiratory pattern is regular, symmetrical. Derm: Skin is pink, warm & dry. 19:24 General: Dr. Heredia in room examining patient . dsf 20:02 General: Appears in no apparent distress, comfortable, Behavior is cooperative. mlc General: pt given water. call light in reach. SO at bedside. Neurological: Level of Consciousness is awake, alert, Oriented to person, place, time. Respiratory: Airway is patent Respiratory effort is even, unlabored, Respiratory pattern is regular. Derm: Skin is pink, warm & dry. 20:02 Cardiovascular: Rhythm is regular. mlc 20:41 General: Appears in no apparent distress, comfortable, Behavior is cooperative. Pain: [facility] Pain currently is 2 out of 10 on a pain scale. Neurological: Level of Consciousness is awake, alert, Oriented to person, place, time. Respiratory: Airway is patent Respiratory effort is even, unlabored, Respiratory pattern is regular. Vital Signs: 13:16 BP 144 / 91; Pulse 106; Resp 18 S; Temp 96.4(O); Pulse Ox 97% on R/A; Weight 101.6 kg gr2 (R); Height 5 ft. 11 in. (180.34 cm) (R); Pain 9/10; 16:33 BP 148 / 70; Pulse 87; Resp 20; Temp 97.5; Pulse Ox 97% ; Pain 6/10; jam1 19:04 BP 149 / 84; Pulse 84; Resp 18; Temp 98.4; Pulse Ox 96% ; Pain 6/10; ajs 19:56 BP 160 / 79; Pulse 86; Resp 18; Temp 99.2(O); Pulse Ox 95% on R/A; Pain 3/10; dsf 20:41 BP 154 / 82; Pulse 78; Resp 18; Temp 97.9; Pulse Ox 96% ; Pain 2/10; mlc 13:16 Body Mass Index 31.24 (101.60 kg, 180.34 cm) gr2 Vitals: 13:16 Log In Time: June 10, 2016 at 13:16. gr2 ED Course: 13:16 Patient visited by Giulia Francois. gr2 13:16 Jonnie Kiser is Private Physician. gr2 13:16 Patient moved to Waiting gr2 13:17 Patient visited by Giulia Francois. gr2 13:17 Patient moved to Pre RCE gr2 13:25 Triage Initiated dwg 13:38 Patient moved to Triage 2 dwg 13:44 [facility] Wins[facility]-C [facility]. dt4 13:44 Cash Merritt MD is Attending Physician. dt4 13:44 Patient visited by Jsesy Winslow PA-C. dt4 13:58 Patient moved to I4 / M4 srm 14:02 Pt greeted and oriented to ED. Patient advised of names of staff involved in care, jam1 location of call cal[place], wait times and NPO status. Patient has correct armband on for positive identification. Placed in gown. Bed in low position. Call light in reach. Side rails up X2. Adult w/ patient. Door closed. 14:28 The patient / caregiver is instructed regarding the plan of care and ED course. jf3 14:28 Accessed PICC line in patient's right arm. Clean & dry. Dressing intact. Good blood jf3 return. Flushes easily. No procedures done that require assistance. 14:31 Patient visited by Edy Yang RN. jf3 14:49 Patient moved to MRI dsf 15:43 Patient moved to I4 / M4 jam1 15:52 [facility] [place] Agreement was scanned into [employer] and attached to record. mm15 16:17 Patient visited by Negin Armenta RN. kc3 16:33 MRI LS SPINE W/O FOLL WITH CON Returned. EDMS 17:11 Patient visited by Negin Armenta RN. kc3 17:26 Patient visited by Jessy Winslow PA-C. dt4 17:37 Patient visited by Valery Padron RN. dsf 17:39 Rosalie Armentasanthosh is Hospitalizing Provider. dt4 18:56 Patient visited by Amy Goncalves. ajs 19:02 Patient visited by Kelli Lund RN. af2 19:05 Patient visited by Amy Goncalves. ajs 19:24 Patient visited by Valery Padron RN. dsf 19:24 MAGNESIUM LEVEL Sent. dsf 19:56 Roxanne Rojas,MOLINA is Primary Nurse. ajs 19:56 Lise Anguiano RN is Primary Nurse. ajs 19:56 Patient moved to 12 ajs 19:56 Report given to Lise AUGUSTE. dsf 20:03 Patient visited by Lise Anguiano RN. mlc 20:08 Primary Nurse role handed off by Roxanne Rojas RN sls1 20:08 Patient visited by Valery Padron RN. dsf 20:35 Patient visited by Lise Anguiano RN. [facility] 06/11 11:07 T-Sheet-- Draft Copy was scanned into [employer] and attached to record. gb Administered Medications: 06/10 14:21 Drug: morphine 4 mg [morphine 4 mg/mL intravenous cartridge (1 mL)] Route: IVP; Site: [facility] Implantable Access Device; 16:17 Drug: morphine 4 mg [morphine 4 mg/mL intravenous cartridge (1 mL)] Route: IVP; Site: [facility] Implantable Access Device; 17:10 Drug: heparin 100units/mL flush (PICC line) 2 ml [heparin flush (porcine) 100 unit/mL kc3 in 0.9 % sodium chloride IV kit (2 mL)] Route: IVP; Site: Implantable Access Device; 17:10 Drug: Potassium Chloride 40 mEq [potassium chloride 20 mEq oral packet (2 packets)] kc3 Route: PO; 19:24 Drug: oxyCODONE-acetaminophen 2 tabs [oxycodone-acetaminophen 5 mg-325 mg tablet (2 dsf tabs)] Route: PO; Output: 17:35 Urine: 150.00ml (Voided); Total: 150.00ml. dsf Order Results: Lab Order: CBC with Diff; SPEC'M 06/10/16 14:16 Test: WHITE BLOOD COUNT; Value: 6.2; Range: 4.0-10.0; Units: K/mm3; Status: F Test: RED BLOOD COUNT; Value: 4.02; Range: 4.30-6.10; Abnormal: Below low normal; Units: M/mm3; Status: F Test: HEMOGLOBIN; Value: 11.6; Range: 14.0-18.0; Abnormal: Below low normal; Units: g/dl; Status: F Test: HEMATOCRIT; Value: 34.8; Range: 42.0-52.0; Abnormal: Below low normal; Units: %; Status: F Test: MEAN CORPUSCULAR VOLUME; Value: 86.6; Range: 80.0-96.0; Units: fl; Status: F Test: MEAN CORPUSCULAR HEMOGLOBIN; Value: 28.8; Range: 27.0-33.0; Units: pg; Status: F Test: MEAN CORPUSCULAR HGB CONC; Value: 33.3; Range: 32.0-36.5; Units: g/dl; Status: F Test: RED CELL DISTRIBUTION WIDTH; Value: 13.3; Range: 11.5-14.5; Units: %; Status: F Test: PLATELET COUNT, AUTOMATED; Value: 180; Range: 150-450; Units: k/mm3; Status: F Test: NEUTROPHILS %; Value: 69.0; Range: 36.0-66.0; Abnormal: Above high normal; Units: %; Status: F Test: LYMPH %; Value: 12.3; Range: 24.0-44.0; Abnormal: Below low normal; Units: %; Status: F Test: MONO %; Value: 6.6; Range: 0.0-5.0; Abnormal: Above high normal; Units: %; Status: F Test: EOS %; Value: 9.7; Range: 0.0-3.0; Abnormal: Above high normal; Units: %; Status: F Test: BASO %; Value: 0.4; Range: 0.0-1.0; Units: %; Status: F Test: LARGE UNSTAINED CELL %; Value: 2.0; Range: 0.0-4.0; Units: %; Status: F Test: NEUTROPHILS #; Value: 4.3; Range: 1.8-7.7; Units: K/mm3; Status: F Test: LYMPH #; Value: 0.8; Range: 1.5-4.5; Abnormal: Below low normal; Units: K/mm3; Status: F Test: MONO #; Value: 0.4; Range: 0.0-0.8; Units: K/mm3; Status: F Test: EOS #; Value: 0.6; Range: 0.0-0.50; Abnormal: Above high normal; Units: K/mm3; Status: F Test: BASO #; Value: 0.0; Range: 0.0-0.2; Units: K/mm3; Status: F Test: LARGE UNSTAINED CELL #; Value: 0.1; Range: 0.0-0.4; Units: K/mm3; Status: F Lab Order: Basic Metabolic Profile; SPEC'M 06/10/16 14:16 Test: GLUCOSE, FASTING; Value: 121; Range: 70-105; Abnormal: Above high normal; Units: MG/DL; Status: F Test: BLOOD UREA NITROGEN; Value: 12; Range: 7-18; Units: MG/DL; Status: F Test: CREATININE FOR GFR; Value: 0.67; Range: 0.70-1.30; Abnormal: Below low normal; Units: MG/DL; Status: F Test: GLOMERULAR FILTRATION RATE; Value: > 60.0; Range: >56; Status: F Test: SODIUM LEVEL; Value: 143; Range: 136-145; Units: MEQ/L; Status: F Test: POTASSIUM SERUM; Value: 3.3; Range: 3.5-5.1; Abnormal: Below low normal; Units: MEQ/L; Status: F Test: CHLORIDE LEVEL; Value: 105; Range: 98-107; Units: MEQ/L; Status: F Test: CARBON DIOXIDE LEVEL; Value: 27; Range: 21-32; Units: MEQ/L; Status: F Test: ANION GAP; Value: 11; Range: 8-16; Units: MEQ/L; Status: F Test: CALCIUM LEVEL; Value: 8.9; Range: 8.5-10.1; Units: MG/DL; Status: F Test Note: ; Units are mL/min/1.73 m2 Chronic Kidney Disease Staging per NKF: Stage I & II GFR >=60 Normal to Mildly Decreased Stage III GFR 30-59 Moderately Decreased Stage IV GFR 15-29 Severely Decreased Stage V GFR <15 Very Little GFR Left ESRD GFR <15 on FIELD RADIO TECHNICIAN Lab Order: CRP; SPEC06/10/16 14:16 Test: C REACTIVE PROTEIN QUANTITATIV; Value: 2.27; Range: 0.00-0.30; Abnormal: Above high normal; Units: MG/DL; Status: F Lab Order: Sed Rate; SPEC06/10/16 14:16 Test: ERYTHROCYTE SEDIMENTATION RATE; Value: 53; Range: 0-20; Abnormal: Above high normal; Units: mm/hr; Status: F Lab Order: MAGNESIUM LEVEL; SPEC06/10/16 19:20 Test: MAGNESIUM LEVEL; Value: 1.5; Range: 1.8-2.4; Abnormal: Below low normal; Units: MG/DL; Status: F Radiology Order: MRI LS SPINE W/O FOLL WITH CON Test: MRI LS SPINE W/O FOLL WITH CON REASON FOR EXAMINATION: low back pain, in treatment for discitis; MRI LUMBAR SPINE WITHOUT AND WITH CONTRAST:; ; HISTORY: Discitis.; ; CONTRAST: ProHance 20 mL.; ; COMPARISON: 04/30/2016 and 05/07/2016.; ; Decreased signal intensity on T2-weighted images is present in the L1-2 through; L4-5 intervertebral discs. The discs are decreased in height. These findings are; consistent with disc degeneration.; ; A diffuse disc bulge is present at the L1-2 level. There is minimal compression; of the thecal sac. The L1 nerves exit the neural foramina without compression.; ; A diffuse disc bulge is present at the L2-3 level. There is minimal compression; of the thecal sac. The L2 nerves exit the neural foramina without compression.; ; A diffuse disc bulge is present at the L3-4 level. There is minimal compression; of the thecal sac. The L3 nerves exit the neural foramina without compression.; ; A diffuse disc bulge is present at the L4-5 level. There is hypertrophy of the; ligamenta flava and posterior articulating facets. These findings produce minimal; central canal stenosis. The L4 nerves exit the neural foramina without; compression.; ; Increased signal intensity on T2-weighted images is present in the L5-S1; intervertebral disc. The intervertebral disc is decreased in height. There is; mild heterogeneous enhancement of the intervertebral disc and adjacent endplates; of the L5 and S1 vertebral bodies. These findings are consistent with discitis; osteomyelitis. Enhancing paravertebral and epidural soft tissue components are; present. A diffuse disc bulge and small left paracentral and intraforaminal disc; protrusion are present. There is mild compression of the thecal sac and left S1; nerve as it exits the thecal sac. There is hypertrophy of the posterior; articulating facets. There is compression of the left L5 nerve in the neural; foramen. The right L5 nerve exits the neural foramen without compression.; ; The conus medullaris is normal in appearance terminating at the level of the L1; intervertebral disc. Hemangiomas are present in the T12, L1 and L4 vertebral; bodies. There is an old compression fracture of the L1 vertebral body with; minimal height loss.; ; IMPRESSION:; ; 1. Diffuse disc bulges at the L1-2 through L3-4 levels with minimal thecal sac; compression.; ; 2. Minimal central canal stenosis at the L4-5 level secondary to disc bulge,; ligamentous and facet hypertrophy.; ; 3. Findings consistent with discitis osteomyelitis at the L5-S1 level. This is; associated with paravertebral and epidural enhancing soft tissue consistent with; a phlegmon. A diffuse disc bulge and small left paracentral and intraforaminal; disc protrusion are present. These findings produce mild compression of the; thecal sac and left S1 nerve as it exits the thecal sac.; ; ; Signed by; Tyler Pearson MD 06/10/2016 04:31 P; Outcome: 17:40 Decision to Hospitalize by Provider. dt4 20:34 Admission hand-off: Report Faxed Fax receipt verified by MOLINA Castanon states pt can come to [facility] floor in 15 minutes. 20:41 Discharge Assessment: Patient awake, alert and oriented x 3. No cognitive and/or mlc functional deficits noted. Patient verbalized understanding of disposition instructions. patient administered narcotics - yes. Patient was admitted to the hospital or transferred to another facility. The following High Risk Discharge criteria are identified: None. Admitted to PCU accompanied by nurse, accompanied by tech, via stretcher, on monitor, with chart. Condition: good Condition: stable. CT Study completed. Property sent home with patient. 20:45 Patient left the ED. terence Signatures: Dispatcher [employer]Host EDRandal Berrios, RN RN Evita Sommers, RN RN noah Bedolla, Leeanne Ramirez, RN Dora Coker, GROVER INVESTOR RELATIONS DIRECTOR jam1 Katey Box, Reg Reg gb Vito,Valery,RN RN dsf Amy Goncalves Shannon RN RN sls1 Giulia Francois gr2 Elvie Salgado mm15 Lise Anguiano,RN RN mlc Jessy Winslow, PA-C PA-C dt4 Kelli LundRN RN af2 Negin Armenta,RN RN kc3 Edy Yang,RN RN jf3 Chart Complete MTDD
--- NOTE | 2016-06-12 23:18 | IPN ---
DATE: 06/12/2016 Mr. Ponce is stable, but he still complaining of excruciating pain in the low back as well as radiating to the legs. He has had no fever or chills. No nausea, vomiting or diarrhea. No abdominal pain. He was seen in consultation with Dr. Heredia who offered him possible need for surgery down the line if his pain persists for decompression. The patient is not interested in surgery at this time. He denies any other complaints. No cough or shortness of breath. PHYSICAL EXAMINATION: On physical examination, temperature is 99, pulse 82, respirations 18, blood pressure 151/73, O2 saturation 92% on room air. Heart: Normal S1-S2. No murmurs. Lungs are clear. No wheezes, rales or rhonchi. Abdomen: Morbidly obese, soft, nontender. Back: Lumbosacral tenderness at L5-S1. Straight leg raising is positive at 40 degrees bilaterally. Motor strength is fair except for giveaway weakness. IMPRESSION: 1. L5-S1 Discitis with unknown etiology; most likely staph aureus, but the patient had been on vancomycin for over 3 weeks and has started to deteriorate. Possible other etiologies methicillin-susceptible Staphylococcus aureus (MSSA) would be better covered with a beta lactam. If gram negative, I would not have expected such a dramatic improvement with the initial course of vancomycin. Disc biopsy was done yesterday, results are still pending. Blood cultures are negative. Gram stain was negative. 2. Hypertension, hyperlipidemia, stable. 3. MRI shows diffuse disc bulge L1, L2 through L3 and L4 and findings consistent with discitis osteomyelitis at L5-S1 with a paravertebral epidural enhancement soft tissue consistent with a phlegmon, diffuse disc bulge and small left paracentral and intraforaminal protrusion. These findings produce mild compression of the thecal sac and left S1 nerve, although the patient complains mostly of pain down the right leg. PLAN: Will switch antibiotic to IV ceftaroline 600 mg every 12 hours for gram-negative coverage as well as to use the beta lactam in case it is MSSA that has failed treatment on vancomycin. Will continue to follow up with the patient and Dr. Heredia. If there is no clinical improvement then maybe surgical intervention will be needed. LABORATORY DATA: CRP 2.23. Sodium 136, potassium 3.9, chloride 101, bicarb 27, white count 5.8, hemoglobin 11.7, hematocrit 34.8, platelets 173.
[2016-06-13] VITALS (8 sets, daily range): BP systolic 124–167; BP diastolic 63–90
[2016-06-13] MEDS: PERCOCET 5MG/325MG TAB PO PRN ×5 (01:13→21:21)
[2016-06-13] MEDS: SODIUM CHLORIDE 0.9% INJ 10 ML SYR IV SCH ×3 (04:31→18:08)
[2016-06-13 04:57] LABS: BASO % 0.3 % (0.0-1.0); EOS # 0.6 K/mm3 (0.0-0.50); LARGE UNSTAINED CELL # 0.1 K/mm3 (0.0-0.4); LARGE UNSTAINED CELL % 2.2 % (0.0-4.0); LYMPH % 23.6 % (24.0-44.0); MEAN CORPUSCULAR HEMOGLOBIN 29.4 pg (27.0-33.0); MEAN CORPUSCULAR VOLUME 86.5 fl (80.0-96.0); MONO # 0.3 K/mm3 (0.0-0.8); MONO % 6.6 % (0.0-5.0); NEUTROPHILS # 2.4 K/mm3 (1.8-7.7); NEUTROPHILS % 54.4 % (36.0-66.0); PLATELET COUNT, AUTOMATED 146 k/mm3 (150-450); RED CELL DISTRIBUTION WIDTH 13.2 % (11.5-14.5); WHITE BLOOD COUNT 4.4 K/mm3 (4.0-10.0)
[2016-06-13 05:23] LABS: ALBUMIN/GLOBULIN RATIO 0.88 (1.00-1.93); ALKALINE PHOSPHATASE 100 U/L (45-117); ALT/SGPT 23 U/L (12-78); ANION GAP 6 MEQ/L (8-16); AST/SGOT 10 U/L (15-37); BILIRUBIN,TOTAL 0.3 MG/DL (0.2-1.0); BLOOD UREA NITROGEN 14 MG/DL (7-18); CALCIUM LEVEL 8.3 MG/DL (8.5-10.1); CARBON DIOXIDE LEVEL 29 MEQ/L (21-32); CHLORIDE LEVEL 105 MEQ/L (98-107); CREATININE FOR GFR 0.81 MG/DL (0.70-1.30); GLOMERULAR FILTRATION RATE > 60.0 (>56); GLUCOSE, FASTING 101 MG/DL (70-105); MAGNESIUM LEVEL 2.1 MG/DL (1.8-2.4); POTASSIUM SERUM 3.8 MEQ/L (3.5-5.1); SODIUM LEVEL 140 MEQ/L (136-145); TOTAL PROTEIN 6.4 GM/DL (6.4-8.2)
[2016-06-13] MEDS: MORPHINE 2 MG/ML 1ML SYRINGE IV PRN (09:16)
[2016-06-13] MEDS: CEFTAROLINE FOSAMIL 600 MG in D5W MINI-BAG PLUS 50 ML IV SCH ×2 (10:13→21:22)
[2016-06-13] MEDS: HEPARIN SOD (PORCINE) 5000 UNITS/ML VIAL SQ SCH ×2 (10:14→21:21)
[2016-06-13] MEDS: METOPROLOL TART 12.5 MG PER 1/2 TAB PO SCH ×2 (10:14→21:21)
[2016-06-13] MEDS: MIRALAX *UNIT DOSE* 17GM PACKET PO SCH (10:14)
[2016-06-13] MEDS: tiZANidine 4 MG TAB PO SCH ×3 (10:15→21:22)
[2016-06-13] MEDS: GABAPENTIN 300 MG CAP PO SCH ×3 (10:15→21:22)
[2016-06-13] MEDS: ASPIRIN 81 MG ENTERIC TAB PO SCH (10:15)
[2016-06-13] MEDS: amLODIPine 5 MG TAB PO SCH (10:15)
[2016-06-13] MEDS: OMEPRAZOLE 20 MG CAP PO SCH (10:15)
[2016-06-13] MEDS: SENOKOT S TAB PO SCH ×2 (10:15→21:22)
[2016-06-13] MEDS: IBUPROFEN 800 MG TAB PO PRN (18:07)
--- NOTE | 2016-06-13 19:28 | IPN ---
DATE: 06/13/2016 Patient seen and examined. No acute events overnight. Continues to report back pain. As per patient, it is a little bit more severe than yesterday. Denies any fevers or chills, chest pain, pressure, discomfort. Reported mild constipation. VITAL SIGNS: Temperature 97, respirations 18, pulse 76, blood pressure 142/80, pulse oximetry 96% on room air. LABORATORY DATA: WBC 4.4, hemoglobin and hematocrit 10.6 over 31.3, platelets 146. Chemistry: Sodium 140, potassium 3.8, chloride 105, bicarbonate 29, BUN 14, creatinine 0.81. PHYSICAL EXAMINATION: GENERAL: Patient alert and oriented times three, in no acute distress. HEENT: Normocephalic, atraumatic. Pupils round, equal and reactive bilaterally. NECK: Supple. PULMONARY: Bilaterally clear to auscultation. CARDIAC: Regular rate and rhythm. Normal S1, S2. ABDOMEN: Soft, nontender, nondistended. Positive bowel sounds. EXTREMITIES: No clubbing, cyanosis, and edema. NEUROLOGIC: Cranial nerves II-XII grossly intact. No focal deficits. ASSESSMENT AND PLAN: This is a 61-year-old male patient with underlying medical history of chronic back pain, recently diagnosed with discitis, treated with vancomycin as an outpatient, hypertension, dyslipidemia, gastroesophageal reflux disease (GERD), who presented to the emergency room with worsening back pain and decreased ability to ambulate. Problems: 1. Discitis with osteomyelitis. The patient has been on vancomycin. Dr. Kiser from infectious disease has been consulted. Status post CT guided biopsy. Followup cultures. Monitoring in progressive care unit (PCU). Neurosurgeon, Dr. Heredia, has been consulted. Surgical options discussed between Dr. Heredia and the patient. Currently the patient elected to have more conservative management with CT guided biopsy. Followup erythrocyte sedimentation rate (ESR), C-reactive protein (CRP). Followup culture. Antibiotic switched to Teflaro for better gram-negative coverage. Followup neurologic checks, bladder scan. 2. History of hypertension. Continue home medication. 3. Dyslipidemia. Continue home medication. 4. Back pain. Continue pain medication as ordered. 5. History of gastroesophageal reflux disease. Continue proton pump inhibitor. 6. Deep vein thrombosis (DVT) prophylaxis. The patient is on heparin subcu. DISPOSITION PLANNING: Pending final infectious disease recommendation, cultures, physical therapy.
[2016-06-13] MEDS: ATORVASTATIN 20 MG TAB PO SCH (21:22)
[2016-06-14] MEDS: IBUPROFEN 800 MG TAB PO PRN ×4 (00:34→23:12)
--- NOTE | 2016-06-14 04:19 | IPN ---
DATE OF SERVICE: 06/13/2016 Mr. Ponce is still complaining of significant back pain. He got out of bed this morning, went to the bathroom and then went to the door. After that, he had severe excruciating pain mostly radiating to the right leg. He has had no fever or chills. LABORATORY DATA: White count is 4.4, hemoglobin 10.6, hematocrit 31.3, platelets 146, 54% neutrophils, 23% lymphocytes, 7% monocytes, eosinophils 13%. Sodium 140, potassium 3.8, chloride 105, bicarbonate 29, BUN 14, creatinine 0.81, glucose 101, calcium 8.3. Liver profile normal. CRP is 3.5, which has increased. Cultures were negative after 48 hours. I would suggest to call the lab and keep the cultures for 2 weeks to allow growth of slow-growing bacteria. IMPRESSION: 1. 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 The patient was started on intravenous (IV) ceftaroline 600 mg every 12. Prior to that he had been on 3 weeks of IV vancomycin. Cultures have remained negative. 2. Hyperlipidemia and hypertension, stable. 3. Severe back pain, on ibuprofen 800 mg every six as needed, gabapentin 300 mg three times a day. PLAN: Call the lab tomorrow in the morning, [phone], and ask them to hold cultures for 14 days to allow for growth of anaerobes such as Propionibacterium acnes. Ask the microbiologist to hold those cultures. Continue ceftaroline 600 mg every 12 hours for 2-3 weeks. Hopefully, the patient will improve and could be discharged home on Thursday.
[2016-06-14 05:59] VITALS: BP 134/78
[2016-06-14 06:15] LABS: BASO % 0.3 % (0.0-1.0); EOS # 0.6 K/mm3 (0.0-0.50); EOS % 14.9 % (0.0-3.0); LARGE UNSTAINED CELL # 0.1 K/mm3 (0.0-0.4); LARGE UNSTAINED CELL % 2.4 % (0.0-4.0); MEAN CORPUSCULAR HEMOGLOBIN 29.4 pg (27.0-33.0); MEAN CORPUSCULAR HGB CONC 33.5 g/dl (32.0-36.5); MEAN CORPUSCULAR VOLUME 87.9 fl (80.0-96.0); MONO # 0.3 K/mm3 (0.0-0.8); MONO % 7.3 % (0.0-5.0); NEUTROPHILS # 2.3 K/mm3 (1.8-7.7); NEUTROPHILS % 52.2 % (36.0-66.0); PLATELET COUNT, AUTOMATED 159 k/mm3 (150-450); RED CELL DISTRIBUTION WIDTH 13.3 % (11.5-14.5); WHITE BLOOD COUNT 4.3 K/mm3 (4.0-10.0)
[2016-06-14] MEDS: PERCOCET 5MG/325MG TAB PO PRN ×3 (06:34→20:58)
[2016-06-14] MEDS: SODIUM CHLORIDE 0.9% INJ 10 ML SYR IV PRN ×2 (06:35→10:39)
[2016-06-14 06:36] LABS: ALBUMIN 2.8 GM/DL (3.2-5.2); ALBUMIN/GLOBULIN RATIO 0.78 (1.00-1.93); ALKALINE PHOSPHATASE 114 U/L (45-117); ALT/SGPT 24 U/L (12-78); ANION GAP 7 MEQ/L (8-16); AST/SGOT 10 U/L (15-37); BILIRUBIN,TOTAL 0.2 MG/DL (0.2-1.0); BLOOD UREA NITROGEN 16 MG/DL (7-18); CALCIUM LEVEL 8.3 MG/DL (8.5-10.1); CARBON DIOXIDE LEVEL 28 MEQ/L (21-32); CHLORIDE LEVEL 106 MEQ/L (98-107); GLOMERULAR FILTRATION RATE > 60.0 (>56); GLUCOSE, FASTING 118 MG/DL (70-105); POTASSIUM SERUM 3.9 MEQ/L (3.5-5.1); SODIUM LEVEL 141 MEQ/L (136-145); TOTAL PROTEIN 6.4 GM/DL (6.4-8.2)
[2016-06-14 08:00] VITALS: BP 132/72
[2016-06-14] MEDS: CEFTAROLINE FOSAMIL 600 MG in D5W MINI-BAG PLUS 50 ML IV SCH ×2 (09:22→20:56)
[2016-06-14] MEDS: HEPARIN SOD (PORCINE) 5000 UNITS/ML VIAL SQ SCH ×2 (09:23→20:56)
[2016-06-14] MEDS: MIRALAX *UNIT DOSE* 17GM PACKET PO SCH (09:23)
[2016-06-14] MEDS: SENOKOT S TAB PO SCH ×2 (09:23→20:56)
[2016-06-14] MEDS: MORPHINE 2 MG/ML 1ML SYRINGE IV PRN (09:23)
[2016-06-14] MEDS: METOPROLOL TART 12.5 MG PER 1/2 TAB PO SCH ×2 (09:24→20:57)
[2016-06-14] MEDS: ASPIRIN 81 MG ENTERIC TAB PO SCH (09:24)
[2016-06-14] MEDS: OMEPRAZOLE 20 MG CAP PO SCH (09:24)
[2016-06-14] MEDS: amLODIPine 5 MG TAB PO SCH (09:24)
[2016-06-14] MEDS: tiZANidine 4 MG TAB PO SCH ×3 (09:24→20:56)
[2016-06-14] MEDS: GABAPENTIN 300 MG CAP PO SCH ×3 (09:24→20:57)
[2016-06-14 12:00] VITALS: BP 144/70
[2016-06-14 15:27] VITALS: BP 141/72
[2016-06-14] MEDS: SODIUM CHLORIDE 0.9% INJ 10 ML SYR IV SCH (18:00)
[2016-06-14 20:16] VITALS: BP 123/71
[2016-06-14] MEDS: ATORVASTATIN 20 MG TAB PO SCH (20:57)
[2016-06-14 23:09] VITALS: BP 128/68
[2016-06-15] MEDS: PERCOCET 5MG/325MG TAB PO PRN ×4 (01:50→18:12)
[2016-06-15] MEDS: MORPHINE 2 MG/ML 1ML SYRINGE IV PRN (05:22)
[2016-06-15] MEDS: IBUPROFEN 800 MG TAB PO PRN ×2 (05:33→15:08)
[2016-06-15 05:35] LABS: BASO % 0.5 % (0.0-1.0); EOS # 0.8 K/mm3 (0.0-0.50); EOS % 12.2 % (0.0-3.0); LARGE UNSTAINED CELL # 0.1 K/mm3 (0.0-0.4); LYMPH # 1.1 K/mm3 (1.5-4.5); LYMPH % 15.6 % (24.0-44.0); MEAN CORPUSCULAR HEMOGLOBIN 29.2 pg (27.0-33.0); MEAN CORPUSCULAR HGB CONC 31.8 g/dl (32.0-36.5); MEAN CORPUSCULAR VOLUME 91.8 fl (80.0-96.0); MONO # 0.2 K/mm3 (0.0-0.8); MONO % 3.2 % (0.0-5.0); NEUTROPHILS # 4.6 K/mm3 (1.8-7.7); NEUTROPHILS % 67.5 % (36.0-66.0); PLATELET COUNT, AUTOMATED 186 k/mm3 (150-450); RED CELL DISTRIBUTION WIDTH 14.3 % (11.5-14.5); WHITE BLOOD COUNT 6.8 K/mm3 (4.0-10.0)
[2016-06-15] MEDS: SODIUM CHLORIDE 0.9% INJ 10 ML SYR IV SCH ×2 (06:00→17:22)
[2016-06-15 06:04] VITALS: BP 145/78
[2016-06-15 06:07] LABS: ALBUMIN 3.3 GM/DL (3.2-5.2); ALBUMIN/GLOBULIN RATIO 0.89 (1.00-1.93); ALKALINE PHOSPHATASE 107 U/L (45-117); ALT/SGPT 25 U/L (12-78); ANION GAP 8 MEQ/L (8-16); AST/SGOT 14 U/L (15-37); BILIRUBIN,TOTAL 0.3 MG/DL (0.2-1.0); BLOOD UREA NITROGEN 13 MG/DL (7-18); CALCIUM LEVEL 8.4 MG/DL (8.5-10.1); CARBON DIOXIDE LEVEL 30 MEQ/L (21-32); CHLORIDE LEVEL 104 MEQ/L (98-107); CREATININE FOR GFR 0.84 MG/DL (0.70-1.30); GLOMERULAR FILTRATION RATE > 60.0 (>56); GLUCOSE, FASTING 93 MG/DL (70-105); POTASSIUM SERUM 4.2 MEQ/L (3.5-5.1); SODIUM LEVEL 142 MEQ/L (136-145)
[2016-06-15 07:54] VITALS: BP 146/77
--- NOTE | 2016-06-15 09:04 | IPN ---
DATE: 06/14/2016 Patient seen and examined. Continues to report back pain. Denies any urinary complaints. Denies any numbness or tingling sensations. Denies any weakness. Denies any chest pain, pressure or discomfort. Denies any fevers or chills. VITAL SIGNS: Temperature 97.8, pulse 72, respirations 18, blood pressure 141/72, pulse oximetry 96% on room air. LABORATORY DATA: WBC 4.3, hemoglobin and hematocrit 10.6/31.7, platelets 159. Chemistries: Sodium 141, potassium 3.9, chloride 106, bicarbonate 28, BUN 16, creatinine 0.8. PHYSICAL EXAMINATION: Patient alert and oriented times three, in no acute distress. Normocephalic, atraumatic. Pupils round, equal and reactive bilaterally. Neck supple. PULMONARY: Bilaterally clear to auscultation. CARDIAC: Regular rate and rhythm. Normal S1 and S2. ABDOMEN: Soft, nontender, nondistended. Positive bowel sounds. EXTREMITIES: No clubbing, cyanosis, and edema. NEUROLOGIC: Cranial nerves II-XII grossly intact. No focal deficits. ASSESSMENT AND PLAN: This is a 61-year-old male patient with underlying medical history of chronic back pain, recently diagnosed with discitis, was treated outpatient with vancomycin, hypertension, dyslipidemia, gastroesophageal reflux disease (GERD), who presented to the emergency room with worsening back pain and decreased ability to ambulate found to have discitis and osteomyelitis. PROBLEMS: 1. Discitis and osteomyelitis. Patient was on vancomycin. Dr. Kiser from infectious disease has been consulted. Status post CT guided biopsy. Followup cultures. Monitor in progressive care unit (PCU). Neurosurgery, Dr. Heredia, has been consulted. Frequent neurologic checks. Bladder scans. Surgical options have been discussed between Dr. Heredia and the patient. Currently patient elected to pursue conservative management with CT guided biopsy and antibiotics. ESR and CRP appreciated. Followup cultures, currently have been negative. Antibiotic switched to Teflaro for better gram-negative coverage. CRP seems to be improved slightly. 2. History of hypertension. Continue home medication. 3. Dyslipidemia. Continue home medication. 4. Back pain. Continue pain medication as ordered. 5. History of GERD. Continue proton pump inhibitor. 6. Deep vein thrombosis (DVT) prophylaxis. Continue heparin subcu. DISPOSITION PLANNING: Pending final infectious disease recommendation, cultures, physical therapy.
[2016-06-15] MEDS: HEPARIN SOD (PORCINE) 5000 UNITS/ML VIAL SQ SCH ×2 (10:07→21:43)
[2016-06-15] MEDS: MIRALAX *UNIT DOSE* 17GM PACKET PO SCH (10:07)
[2016-06-15] MEDS: SENOKOT S TAB PO SCH ×2 (10:07→21:45)
[2016-06-15] MEDS: METOPROLOL TART 12.5 MG PER 1/2 TAB PO SCH ×2 (10:08→21:43)
[2016-06-15] MEDS: amLODIPine 5 MG TAB PO SCH (10:08)
[2016-06-15] MEDS: OMEPRAZOLE 20 MG CAP PO SCH (10:08)
[2016-06-15] MEDS: ASPIRIN 81 MG ENTERIC TAB PO SCH (10:08)
[2016-06-15] MEDS: GABAPENTIN 300 MG CAP PO SCH ×3 (10:08→21:44)
[2016-06-15] MEDS: CEFTAROLINE FOSAMIL 600 MG in D5W MINI-BAG PLUS 50 ML IV SCH ×2 (10:09→21:45)
[2016-06-15] MEDS: tiZANidine 4 MG TAB PO SCH ×3 (10:09→21:44)
[2016-06-15] MEDS: oxyCODONE 15 MG CR TAB PO SCH ×2 (10:58→21:44)
[2016-06-15 11:40] VITALS: BP 121/69
[2016-06-15 16:00] VITALS: BP 150/75
[2016-06-15 20:16] VITALS: BP 152/82
--- NOTE | 2016-06-15 21:03 | IPN ---
DATE: 06/15/2016 Patient is seen and examined. Continues to report back pain. Denies any chest pain, pressure, or discomfort. Denies any nausea or vomiting. Denies any fevers or chills. Patient reported back pain has worsened and also reported left lower extremity weakness, even though on physical exam patient's bilateral lower extremity strength seems to be intact. Patient has been requesting transfer. Case was discussed with Dr. Heredia. VITAL SIGNS: Temperature 98.5, pulse 86, respirations 18, blood pressure 150/75 , pulse oximetry 95% on room air. LABORATORY DATA: WBC 6.8, hemoglobin and hematocrit 12/37.8, platelets 186. Chemistry: Sodium 142, potassium 4.2, chloride 104, bicarbonate 30, BUN 13, creatinine 0.84. PHYSICAL EXAMINATION: Patient alert and oriented times three, in no acute distress. Normocephalic, atraumatic. Pupils round, equal, and reactive bilaterally. NECK: Supple. PULMONARY: Bilaterally clear to auscultation. CARDIAC: Regular rate and rhythm. Normal S1, S2. ABDOMEN: Soft, nontender, nondistended. Positive bowel sounds. EXTREMITIES: No clubbing, cyanosis, or edema. NEUROLOGIC: Cranial nerves II-XII grossly intact. No focal deficits. ASSESSMENT AND PLAN: This is a 61-year-old male patient with underlying medical history of chronic back pain, recently diagnosed discitis, was treated outpatient with vancomycin, hypertension, dyslipidemia, gastroesophageal reflux disease (GERD), presented to the emergency room with worsening back pain and decreased ability to ambulate, found to have discitis and osteomyelitis. 1. Discitis and osteomyelitis. Patient was on vancomycin. Dr. Kiser from infectious disease (ID) was consulted. Status post CT guided biopsy. Followup cultures. Monitor in progressive care unit (PCU). Neurosurgery, Dr. Heredia, was consulted. Frequent neurologic checks. Bladder scan. Surgical option has been discussed with Dr. Heredia and the patient. Patient initially elected to pursue conservative management with CT guided biopsy, antibiotics. Followup C-reactive protein (CRP), erythrocyte sedimentation rate (ESR). Antibiotics have been changed from vancomycin to Teflaro. Culture has been negative. C-reactive protein seems to be improving but patient today reported that over the past 2 days back pain has worsened and is requesting second opinion given that as per Dr. Heredia surgical procedure carries significant risk of vertebral instability, and furthermore given patient has an active infection and cannot put in rods, therefore patient can have significant risks and complications from surgery. Patient requested second opinion from other surgeon. Case discussed with Dr. Cavazos at [facility]. Dr. Cavazos agrees with Dr. Heredia's assessment, no acute surgical intervention at this time, continue antibiotics with conservative management. Case was also discussed with [facility], Dr. Del Castillo, at phone number [phone]. Dr. Del Castillo requested MRI and radiological images be sent to his office for further review. Currently agrees with our plan. Phone number of the office [phone]. Dr. Heredia further requested Dr. Govea to evaluate the patient in person tomorrow for a second opinion to see if surgical intervention is necessary. In the meantime, continue pain medication. 2. History of hypertension. Continue home medication. 3. Dyslipidemia. Continue home medication. 4. Back pain. Continue pain medication as ordered. 5. History of gastroesophageal reflux disease (GERD). Continue proton pump inhibitor (PPI). 6. Deep venous thrombosis (DVT) prophylaxis. Heparin subcutaneous. DISPOSITION PLANNING: Will send radiographic evidence to Dr. Del Castillo at [facility] and will also discuss with Dr. Sean Govea for further recommendation. Case discussed with Dr. Heredia and Dr. Kiser. Physical therapy. Continue antibiotics. Pending physical improvement. MTDD
--- NOTE | 2016-06-15 21:08 | REP ---
CT of the lumbosacral spine 06/15/2016 Indication for bone destruction Comparison made with prior CT of the pelvis 05/02/2016 and MRI of the lumbosacral spine 06/10/2016 Technique: 4 mm reconstructed axial images were obtained from superior endplate of L1 through S1 There is moderate to advanced disc space narrowing at L5 -S1. There are erosive /destructive changes within the inferior endplate of L5, most pronounced on the left and posteriorly at this level. There is no evidence of acute fracture at any additional lumbar levels . Small disc bulges are identified at multiple levels. Impression: Moderate erosive changes involving the inferior endplate of L5 at L5 S1 disc space. The erosive changes are most pronounced on the left and posteriorly at this level. The erosive changes within the left posterior inferior endplate of L5 represent interval change when compared with prior CT of the abdomen pelvis 05/02/2016; findings however are not significantly changed from that noted on MRI of the lumbosacral spine with contrast 06/10/2016 Signed by Jenni Beck MD 06/15/2016 09:00 P
[2016-06-15] MEDS: ATORVASTATIN 20 MG TAB PO SCH (21:45)
[2016-06-15 23:41] VITALS: BP 130/75
[2016-06-16] MEDS: PERCOCET 5MG/325MG TAB PO PRN ×4 (03:21→16:53)
[2016-06-16 04:33] VITALS: BP 153/77
[2016-06-16] MEDS: SODIUM CHLORIDE 0.9% INJ 10 ML SYR IV SCH ×2 (05:02→16:35)
[2016-06-16 05:12] LABS: BASO % 0.3 % (0.0-1.0); EOS # 0.8 K/mm3 (0.0-0.50); EOS % 14.4 % (0.0-3.0); LARGE UNSTAINED CELL # 0.1 K/mm3 (0.0-0.4); LARGE UNSTAINED CELL % 2.3 % (0.0-4.0); LYMPH # 1.4 K/mm3 (1.5-4.5); LYMPH % 25.1 % (24.0-44.0); MEAN CORPUSCULAR HEMOGLOBIN 29.3 pg (27.0-33.0); MEAN CORPUSCULAR HGB CONC 33.3 g/dl (32.0-36.5); MONO # 0.3 K/mm3 (0.0-0.8); MONO % 5.6 % (0.0-5.0); NEUTROPHILS # 2.9 K/mm3 (1.8-7.7); NEUTROPHILS % 52.3 % (36.0-66.0); PLATELET COUNT, AUTOMATED 187 k/mm3 (150-450); RED CELL DISTRIBUTION WIDTH 13.4 % (11.5-14.5); WHITE BLOOD COUNT 5.5 K/mm3 (4.0-10.0)
[2016-06-16 06:31] LABS: ALBUMIN 3.2 GM/DL (3.2-5.2); ALKALINE PHOSPHATASE 106 U/L (45-117); ALT/SGPT 30 U/L (12-78); ANION GAP 8 MEQ/L (8-16); AST/SGOT 17 U/L (15-37); BILIRUBIN,TOTAL 0.3 MG/DL (0.2-1.0); BLOOD UREA NITROGEN 13 MG/DL (7-18); CALCIUM LEVEL 8.5 MG/DL (8.5-10.1); CARBON DIOXIDE LEVEL 27 MEQ/L (21-32); CHLORIDE LEVEL 103 MEQ/L (98-107); CREATININE FOR GFR 0.86 MG/DL (0.70-1.30); GLOMERULAR FILTRATION RATE > 60.0 (>56); GLUCOSE, FASTING 102 MG/DL (70-105); MAGNESIUM LEVEL 2.1 MG/DL (1.8-2.4); SODIUM LEVEL 138 MEQ/L (136-145); TOTAL PROTEIN 7.2 GM/DL (6.4-8.2)
[2016-06-16] MEDS: IBUPROFEN 800 MG TAB PO PRN ×2 (06:54→14:57)
[2016-06-16 08:00] VITALS: BP 165/83
[2016-06-16] MEDS: MIRALAX *UNIT DOSE* 17GM PACKET PO SCH ×2 (09:00→09:20)
[2016-06-16] MEDS: tiZANidine 4 MG TAB PO SCH ×3 (09:20→20:55)
[2016-06-16] MEDS: CEFTAROLINE FOSAMIL 600 MG in D5W MINI-BAG PLUS 50 ML IV SCH ×2 (09:20→20:55)
[2016-06-16] MEDS: ASPIRIN 81 MG ENTERIC TAB PO SCH (09:20)
[2016-06-16] MEDS: GABAPENTIN 300 MG CAP PO SCH ×3 (09:20→20:56)
[2016-06-16] MEDS: METOPROLOL TART 12.5 MG PER 1/2 TAB PO SCH ×2 (09:20→20:57)
[2016-06-16] MEDS: SENOKOT S TAB PO SCH ×2 (09:20→20:56)
[2016-06-16] MEDS: OMEPRAZOLE 20 MG CAP PO SCH (09:20)
[2016-06-16] MEDS: amLODIPine 5 MG TAB PO SCH (09:20)
[2016-06-16] MEDS: oxyCODONE 15 MG CR TAB PO SCH ×2 (09:21→20:58)
[2016-06-16] MEDS: HEPARIN SOD (PORCINE) 5000 UNITS/ML VIAL SQ SCH ×2 (09:21→20:55)
[2016-06-16] MEDS: SODIUM CHLORIDE 0.9% INJ 10 ML SYR IV PRN ×3 (09:22→22:15)
--- NOTE | 2016-06-16 09:31 | REP ---
MR LUMBAR SPINE WITHOUT AND WITH CONTRAST: HISTORY: Discitis. Contrast: ProHance 20 mL. COMPARISON: 06/10/2016 Decreased signal intensity on T2-weighted images is present in the L1-2 through L4-5 intervertebral discs. The discs are decreased in height. The findings are consistent with disc degeneration. A diffuse disc bulge is present at the L1-2 level. There is minimal compression of the thecal sac. The L1 nerves exit the neural foramina without compression. A diffuse disc bulge is present at the L2-3 level. There is minimal compression of the thecal sac. The L2 nerves exit the neural foramina without compression. A diffuse disc bulge is present at the L3-4 level. There is minimal compression of the thecal sac. The L3 nerves exit the neural foramina without compression. A diffuse disc bulge is present at the L4-5 level. There is hypertrophy of the ligamenta flava and posterior articulating facets. These findings produce minimal central canal stenosis. The L4 nerves exit the neural foramina without compression. Increased signal intensity is on T2 weighted images is present in the L5-S1 intervertebral disc. The intervertebral disc is decreased in height. There is mild heterogenous enhancement of the intervertebral disc and adjacent endplates of the L5 and S1 vertebral bodies. Enhancing paravertebral and epidural soft tissue components are present. A diffuse disc bulge and small left paracentral and intraforaminal disc protrusion are present. There is mild compression of the thecal sac and left S1 nerve as it exits the thecal sac. There is hypertrophy of the posterior articulating facets. There is compression of the left L5 nerve in the neural foramen. The right L5 nerve exits the neural foramen without compression. The conus medullaris is normal in appearance terminating at the level of the L1 intervertebral disc. Hemangiomas are present in the T12 , L1 and L4 vertebral bodies. There is an old compression fracture of the L1 vertebral body with minimal height loss. IMPRESSION: 1. Diffuse disc bulges at the L1-2 and L3-4 levels with minimal thecal sac compression. 2. Minimal central canal stenosis at the L4-5 level secondary to disc bulge, ligamentous and facet hypertrophy. 3. Findings consistent with discitis, osteomyelitis at the L5-S1 level. This is associated with a paravertebral and epidural phlegmon. A diffuse disc bulge and small left paracentral and intraforaminal disc protrusion are present. There is mild compression of the thecal sac and left S1 nerve as it exits the thecal sac. These findings are unchanged compared to the previous study. Signed by Tylre Pearson MD 06/16/2016 09:44 A
[2016-06-16 12:00] VITALS: BP 130/52
[2016-06-16 16:00] VITALS: BP 136/68
--- NOTE | 2016-06-16 17:15 | CR ---
DATE OF CONSULTATION: 06/16/2016 REFERRING PROVIDER: Dr. Noonan CHIEF COMPLAINT: Low back pain. HISTORY OF PRESENT ILLNESS: Julio Cesar is a 61-year-old gentleman who was recently in the hospital from April 28 to May 16 and was diagnosed with this diskitis. He was sent home on intravenous (IV) antibiotics. About 1 week ago he developed severe low back pain that was aggravated by sitting. He was admitted and diagnosed with osteomyelitis. Recently started on OxyContin 15 mg twice a day a few days ago. Reporting level 2/10 pain at rest. Pain is aggravated to a level 5 with rolling [id number] and patient states at times when he is sitting he screams in pain. Denies weakness in the lower extremities. Denies bowel or bladder incontinence. ALLERGIES: No known drug allergies. PAST MEDICAL HISTORY: Gastroesophageal reflux disease (GERD), chronic back pain, hyperlipidemia, hypertension. SURGERIES: No past surgical history. SOCIAL HISTORY: The patient quit smoking 1 year ago. Lives at home with his . 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 REVIEW OF SYSTEMS: 12 point review of systems obtained all of which was negative except for those mentioned in history of present illness (HPI). PHYSICAL EXAMINATION: Awake, alert, pleasant. Vitals: 96, 86, 18, 130/52, O2 sat 97% on room air. Cardiac - S1-S2. Normal rate and rhythm. Respiratory - lung sounds are clear. Respirations nonlabored. Inspection of spine nontender with palpation. Inspection of Extremities: No swelling. Extremities are easily mobile and warm to touch. The patient states he is unable to get to a sitting position due to severe pain. ASSESSMENT: Diskitis, osteomyelitis PLAN: I would agree to continue OxyContin 15 mg twice a day. Continue tizanidine 4 mg three times a day. Would recommend Toradol 10 mg three times a day times 5 days. May consider Celebrex 200 mg twice a day once Toradol is stopped. Continue Percocet 5/325 two tablets for severe pain level 5-10. Continue morphine sulfate IV every 4 hours as needed for severe uncontrolled pain episodes. Thank you for allowing us to participate in the care of your patient. Should you have any questions do not hesitate to contact me. OWEN
[2016-06-16 20:00] VITALS: BP 126/67
[2016-06-16] MEDS: ATORVASTATIN 20 MG TAB PO SCH (20:55)
[2016-06-16] MEDS: KETOROLAC TROMETHAMINE 10 MG TAB PO SCH (20:58)
--- NOTE | 2016-06-16 21:22 | IPN ---
DATE OF SERVICE: 06/16/2016 Patient seen and examined. No acute events overnight. Continues to report back pain, but patient was still able to ambulate, as per nursing staff. Reported worsening back pain. Denies any fevers, chills, chest pain, pressure, discomfort. Denies any abdominal pain. VITAL SIGNS: Temperature 96.8, pulse 80, respirations 18, blood pressure 136/68 , pulse oximetry 96% on room air. LABORATORY DATA: WBC 5.5, hemoglobin and hematocrit (H and H) 11.3 and 34.0, platelets 187. Chemistry: Sodium 138, potassium 4, chloride 103, bicarbonate 27, BUN 13, creatinine 0.86. Cultures negative to date. PHYSICAL EXAMINATION: GENERAL: Patient alert and oriented times three. No acute distress. Normocephalic, atraumatic. Pupils equal, round and reactive. NECK: Supple. PULMONARY: Bilateral clear to auscultation. CARDIAC: Regular rate and rhythm. Normal S1, S2. ABDOMEN: Soft, nontender, nondistended. Positive bowel sounds. EXTREMITIES: No clubbing, cyanosis or edema. NEUROLOGIC: Cranial nerves II-XII grossly intact. No focal deficits. Able to move all four extremities. Symmetrical strength bilateral. ASSESSMENT AND PLAN: This is a 61-year-old male patient with underlying medical history of chronic back pain recently diagnosed discitis, was treated outpatient with vancomycin, hypertension, dyslipidemia, gastroesophageal reflux disease (GERD), presented to the emergency room with worsening back pain, decreased ability to ambulate, found to have discitis and osteomyelitis. PROBLEMS: 1. Discitis and osteomyelitis. Patient was on vancomycin. Dr. Kiser from infectious disease was consulted status post CT guided biopsy. Cultures currently negative. Monitoring in progressive care unit (PCU). Neurosurgery, Dr. Heredia, was consulted. Frequent neurologic checks. Bladder scans. Surgical option has been discussed with the patient by Dr. Heredia. Patient initially elected to pursue conservative management with antibiotics and biopsies. C-reactive protein and erythrocyte sedimentation rate (ESR) was followed. Antibiotics changed from vancomycin to Teflaro. Physical therapy was ordered. Patient's condition did not improve much. Subsequently, case was discussed with Dr. Heredia. As per Dr. Heredia, surgical procedure carries significant risk of vertebral instabilities and, given that patient has an active infection, cannot place any hardware for stabilization; therefore, patient could end up prolonged bed-bound. Option of surgery was discussed with patient. Patient stated that he would like a second opinion and case was offered for possible transfer. Case was discussed with Dr. Cavazos, neurosurgery at [facility]. As per Dr. Cavazos, he agrees with Dr. Heredia's assessment. No acute surgical intervention at this time. Continue antibiotics. Conservative management as per Dr. Cavazos. Patient's condition can take a significantly long time to improve. Case was discussed with Dr. Del Castillo at [facility], phone number [phone]. Dr. Del Castillo requested MRI and radiological images be sent to his office on Thursday. Office phone number is [phone]. A disk has been requested to process the information sent to Dr. Del Castillo's office. Dr. Heredia further requested Dr. Govea to come in person to evaluate the patient for a second opinion to see if surgical intervention is necessary. In the meantime, pain management has been consulted. Continue pain medication, as ordered. 2. History of hypertension. Continue home medication. 3. Dyslipidemia. Continue home medication. 4. Back pain. Continue medication as ordered. Pain management has been consulted. 5. Gastroesophageal reflux disease (GERD). Continue proton pump inhibitor (PPI). 6. Deep venous thrombosis (DVT) prophylaxis. Heparin subcutaneous. DISPOSITION PLANNING: Pending second opinions from Dr. Del Castillo and Dr. Sean Govea. Case discussed with Dr. Heredia and Dr. Kiser. Physical therapy. Antibiotics. Clinical improvement. [facility]
[2016-06-16 23:59] VITALS: BP 136/89
[2016-06-17 04:00] VITALS: BP 160/79
[2016-06-17] MEDS: PERCOCET 5MG/325MG TAB PO PRN ×4 (04:06→18:20)
[2016-06-17] MEDS: SODIUM CHLORIDE 0.9% INJ 10 ML SYR IV SCH ×2 (05:43→16:58)
[2016-06-17 06:14] LABS: MEAN CORPUSCULAR HEMOGLOBIN 28.9 pg (27.0-33.0); MEAN CORPUSCULAR HGB CONC 33.1 g/dl (32.0-36.5); MEAN CORPUSCULAR VOLUME 87.5 fl (80.0-96.0); RED CELL DISTRIBUTION WIDTH 13.3 % (11.5-14.5); WHITE BLOOD COUNT 5.7 K/mm3 (4.0-10.0)
[2016-06-17 06:28] LABS: ANION GAP 8 MEQ/L (8-16); BLOOD UREA NITROGEN 14 MG/DL (7-18); CALCIUM LEVEL 8.3 MG/DL (8.5-10.1); CARBON DIOXIDE LEVEL 28 MEQ/L (21-32); CHLORIDE LEVEL 104 MEQ/L (98-107); CREATININE FOR GFR 0.83 MG/DL (0.70-1.30); GLOMERULAR FILTRATION RATE > 60.0 (>56); GLUCOSE, FASTING 96 MG/DL (70-105); POTASSIUM SERUM 4.1 MEQ/L (3.5-5.1); SODIUM LEVEL 140 MEQ/L (136-145)
[2016-06-17 08:00] VITALS: BP 148/77
[2016-06-17] MEDS: KETOROLAC TROMETHAMINE 10 MG TAB PO SCH ×3 (09:09→21:36)
[2016-06-17] MEDS: METOPROLOL TART 12.5 MG PER 1/2 TAB PO SCH ×2 (09:09→21:37)
[2016-06-17] MEDS: SENOKOT S TAB PO SCH ×2 (09:09→21:35)
[2016-06-17] MEDS: CEFTAROLINE FOSAMIL 600 MG in D5W MINI-BAG PLUS 50 ML IV SCH ×2 (09:09→21:35)
[2016-06-17] MEDS: MIRALAX *UNIT DOSE* 17GM PACKET PO SCH (09:09)
[2016-06-17] MEDS: amLODIPine 5 MG TAB PO SCH (09:10)
[2016-06-17] MEDS: GABAPENTIN 300 MG CAP PO SCH ×3 (09:10→21:36)
[2016-06-17] MEDS: OMEPRAZOLE 20 MG CAP PO SCH (09:10)
[2016-06-17] MEDS: ASPIRIN 81 MG ENTERIC TAB PO SCH (09:10)
[2016-06-17] MEDS: HEPARIN SOD (PORCINE) 5000 UNITS/ML VIAL SQ SCH ×2 (09:11→21:35)
[2016-06-17] MEDS: oxyCODONE 15 MG CR TAB PO SCH ×2 (09:11→21:36)
[2016-06-17] MEDS: SODIUM CHLORIDE 0.9% INJ 10 ML SYR IV PRN (09:12)
[2016-06-17] MEDS: tiZANidine 4 MG TAB PO SCH ×3 (09:12→21:39)
[2016-06-17 12:00] VITALS: BP 139/78
[2016-06-17 14:30] VITALS: BP 143/72
--- NOTE | 2016-06-17 16:46 | IPNPDOC ---
Assessment/Plan Date Seen The patient was seen on 06/17/16. Plan / VTE VTE Prophylaxis Ordered?: Yes Plan Plan Text Discitis and osteomyelitis at the L5-S1 level. MRI of lumbar spine noted Dr. Kiser from infectious disease was consulted status post CT guided biopsy. Cultures unrevealing thus far. Neurosurgery, Dr. Heredia, was consulted.--> He discussed with the patient and myself that a surgical intervention carries significant risk of vertebral instabilities. Also, given the fact that the patient has an active infection, the patient would be ineligible for any hardware placement for stabilization A second opinion was also sought from Dr. Govea of spinal surgery, and according to the patient he agrees with Dr. Heredia that this would indeed be very risky surgery, and the risks and benefits were discussed. In addition, Dr. Noonan did reach out to Dr. Cavazos of [facility] neurosurgery for an additional opinion-and he agreed with the neurosurgical management here, and states that there is no need for acute surgery at this time. Continue neurologic checks. Bladder scans. Continue Physical therapy At this time we will continue the patient on Teflaro as per ID Pain management input noted-we will continue to titrate the patient's pain medications History of hypertension. Continue home medication. Dyslipidemia. Continue home medication. Back pain. Continue medication as ordered. Pain management on board Gastroesophageal reflux disease (GERD). Continue proton pump inhibitor 6. Deep venous thrombosis (DVT) prophylaxis. Heparin subcutaneous. DISPOSITION PLANNING: We will continue with medical management of the patient' s discitis/osteomyelitis. We will follow up with infectious disease recommendations for outpatient IV antibiotic infusion. In the meantime, we will have the patient continue to work with physical therapy and titrate the patient' s pain medications. Subjective Review of Systems CC/HPI The patient is a 61-year-old male admitted with a reason for visit of Discitis Of [place] Region. General: Denies: Chills, Night Sweats Constitutional: Denies: Chills, Fever ENT: Denies: Ear Pain, Head Aches Pulmonary: Denies: Cough, Dyspnea Cardiovascular: Denies: Chest Pain, Palpitations Gastrointestinal: Denies: Abdominal Pain, Nausea, Vomiting Hematologic: Denies: Bleeding Excessively, Bruising Musculoskeletal: Reports: Back Pain Objective Physical Examination General Exam: Positive: Alert, Cooperative, No Acute Distress ENT Exam: Positive: Atraumatic, Mucous membr. moist/pink Chest Exam: Positive: Clear to auscultation, Normal air movement Heart Exam: Positive: Normal S1, Normal S2, Rate Normal Abdomen Exam: Positive: Soft, Negative: Tenderness Extremity Exam: Positive: Other (patient with limited range of motion on flexion and extension of the lumbar spine secondary to discitis/osteomyelitis), Negative: Edema Neuro Exam: Positive: Other (neurovascularly intact in the lower extremities, 5 out of 5 strength on hip flexion, knee flexion, and plantar/extensor function of the ankle joint. Sensory function intact. No cell anesthesia) Vital Signs/I&O Vital Signs Date Time Temp Pulse Resp B/P Pulse Ox O2 Delivery O2 Flow Rate FiO2 06/17/16 14:30 97.1 71 18 143/72 94 Room Air I&O- Last 24 Hours up to 6 AM 06/17/16 06:00 Intake Total 3220 ml Output Total 2150 ml Balance 1070 ml Laboratory Data Labs 24H Laboratory Tests 2 06/17/16 05:45: Anion Gap 8, C-Reactive Protein, Quantitative 2.51H, Blood Urea Nitrogen 14, Creatinine 0.83, Sodium Level 140, Potassium Level 4.1, Chloride Level 104, Carbon Dioxide Level 28, Calcium Level 8.3L, Glomerular Filtration Rate > 60.0, Magnesium Level 2.0 CBC/BMP Laboratory Tests 06/17/16 05:45 Calcium Level 8.3 L, Red Blood Count 3.64 L, Mean Corpuscular Volume 87.5, Mean Corpuscular Hemoglobin 28.9, Mean Corpuscular Hemoglobin Concent 33.1, Red Cell Distribution Width 13.3 Microbiology Microbiology 06/10/16 Blood Culture - Final, Complete NO GROWTH AFTER 5 DAYS 06/11/16 Anaerobic Culture - Final, Complete 06/11/16 Gram Stain - Final, Complete 06/11/16 Abscess Culture - Final, Complete NORA STACK MD Jun 17, 2016 16:46
[2016-06-17 18:00] VITALS: BP 115/62
--- NOTE | 2016-06-17 18:02 | IPN ---
DATE: 06/17/2015 SUBJECTIVE: Mr. Ponce seems to be stable. He still complains of significant back pain. He was seen in consultation by the pain clinic who is adjusting his pain medications. He had a second opinion from Dr. Govea regarding his pain and whether he would be a candidate for surgery. Dr. Govea did not feel that he should have any surgery done on his back. He has no nausea, vomiting or diarrhea. No abdominal pain. LABORATORY DATA: White count 5.7, hemoglobin 10.5, hematocrit 31.9, platelets 169. Sodium 140, potassium 4.1, chloride 104, bicarb 28, BUN 14, creatinine 0.83, glucose 96, calcium 8.3, magnesium 2. CRP is 2.51. MICROBIOLOGY: Was negative. OBJECTIVE: On physical exam, temperature is 97.1. Vital signs are stable. Back: Moderate lumbosacral tenderness at L5-S1. IMPRESSION: Severe L5-S1 diskitis with worsening pain but stable white count, C-reactive protein (CRP) and afebrile. Disk biopsy was negative but the patient had been on antibiotics for at least 3-4 weeks prior to biopsy. He has been switched intravenous (IV) ceftaroline 600 mg every 12 hours. Will add rifampin 300 mg by mouth twice a day that has been shown to help with bone penetration and vertebral osteomyelitis. The patient was advised about side effects, about orange-colored urine as well as orange-color secretions. The patient was advised to avoid alcohol. Will hopefully be discharged in the next 48 hours although he is concerned about his pain management. Followup in my office in a couple weeks. Also discussed with Dr. Govea whether he would benefit from a back brace.
--- NOTE | 2016-06-17 19:28 | CR ---
DATE OF CONSULTATION: 06/16/2016 More than 50 minutes was invested in the consultation, greater than 50% of which was [id number] time with the patient discussing the situation. I was asked to see Mr. Ponce with regard to his L5-S1 diskitis with left-sided disk extrusion and ongoing discomfort. I reviewed his history and notes and it appears that the patient had been suffering for a number of weeks from this diskitis. He had been seen by Dr. Heredia who has recommend consideration of potentially surgery to decompress the area. He has been on intravenous antibiotics for weeks. He is also seen and attended to by Kerri Kiser, infectious disease. I reviewed her notes, and I also discussed the patient's case with her on the telephone with respect to continued medical management of the diskitis. I talked to the patient about his level of discomfort. The patient denies having numbness and tingling in his extremities. He complains of pain that sometimes radiates to the right-sided back and the left side of the back, but right now he is not complaining of pain radiating to the legs and he denies having any numbness at any point in the legs. On the MRI, there does not seem to be any significant canal compromise. There is no severe spinal stenosis. There is a small extruded disc at the L5-S1 level of the left side, and there is a paravertebral phlegmon as described in the MRI report. MRIs were reviewed and I agree with their interpretations. I also reviewed the patient's lab studies with a white count of 5.5, polys 52. C-reactive protein has ranged from 3.5 to 4.7 in the last several days. I reviewed the imaging studies as outlined. BRIEF EXAMINATION: The patient appeared be comfortable in bed when I saw him. He was not febrile. He is not short of breath. There is not abdominal distension and there is no sensory deficit in the extremities. Moving and turning produces discomfort but during our examination section, I would not describe the discomfort is severe more closely moderate. IMPRESSION: The patient has a history of diskitis and is currently being treated ongoing for diskitis at L5-S1. RECOMMENDATIONS: At this point, this 61-year-old gentleman does not have a neurologic deficit, and he does not have any severe lumbar spinal stenosis. His treatment has spanned already several weeks; however, it is true that diskitis takes a significant of time to treat. We talked about surgery. I do not think that surgery would be unrealistic for this patient; however, I am also not convinced that nonoperative care is not still indicated. He does not have severe stenosis. He has been on antibiotics intravenously for a number of weeks and I think that the likelihood of obtaining a viable culture surgically may be quite poor at this stage unless the antibiotics are held. I also reviewed the labs that were provided by the needle biopsy and that aspiration cultured negative. The bottom line is I have no firm opinion that surgery is required, and it is my opinion that continued nonoperative care and intravenous antibiotics are reasonable and that the patient could continue to be monitored by infectious disease. In the event that this patient developed any sort of progressive neurologic deficit associated with significant canal compromise in my opinion, his situation could change, but in my opinion that may be unlikely. I did also explain to the patient that diskitis can be quite painful and that pain can be prolonged over prior number of months. Initial consideration could be bracing but, unfortunately, diskitis at the L5-S1 level would require a lumbosacral orthosis with likely a thigh extension to really immobilize that level. I am not sure that the brace might not be more uncomfortable than protected weightbearing/guarding. The patient was happy with my explanation. I invested nearly 50 minutes in this consultation, more than 50% of which was [id number] time with the patient. I also discussed the patient's case directly with infectious disease, Dr. Kerri Kiser.
[2016-06-17] MEDS: ATORVASTATIN 20 MG TAB PO SCH (21:36)
[2016-06-17 22:00] VITALS: BP 150/75
[2016-06-18] VITALS (7 sets, daily range): BP systolic 123–157; BP diastolic 70–84
[2016-06-18] MEDS: PERCOCET 5MG/325MG TAB PO PRN ×3 (04:52→23:40)
[2016-06-18] MEDS: SODIUM CHLORIDE 0.9% INJ 10 ML SYR IV SCH ×2 (05:23→17:53)
[2016-06-18 07:00] LABS: MEAN CORPUSCULAR HGB CONC 33.3 g/dl (32.0-36.5); MEAN CORPUSCULAR VOLUME 87.1 fl (80.0-96.0); RED CELL DISTRIBUTION WIDTH 13.3 % (11.5-14.5); WHITE BLOOD COUNT 6.3 K/mm3 (4.0-10.0)
[2016-06-18 07:10] LABS: ANION GAP 6 MEQ/L (8-16); BLOOD UREA NITROGEN 15 MG/DL (7-18); CALCIUM LEVEL 8.8 MG/DL (8.5-10.1); CARBON DIOXIDE LEVEL 30 MEQ/L (21-32); CHLORIDE LEVEL 104 MEQ/L (98-107); CREATININE FOR GFR 0.99 MG/DL (0.70-1.30); GLOMERULAR FILTRATION RATE > 60.0 (>56); GLUCOSE, FASTING 102 MG/DL (70-105); MAGNESIUM LEVEL 2.1 MG/DL (1.8-2.4); POTASSIUM SERUM 4.3 MEQ/L (3.5-5.1); SODIUM LEVEL 140 MEQ/L (136-145)
[2016-06-18] MEDS: CEFTAROLINE FOSAMIL 600 MG in D5W MINI-BAG PLUS 50 ML IV SCH ×2 (08:47→20:51)
[2016-06-18] MEDS: OMEPRAZOLE 20 MG CAP PO SCH (08:47)
[2016-06-18] MEDS: HEPARIN SOD (PORCINE) 5000 UNITS/ML VIAL SQ SCH ×2 (08:47→20:14)
[2016-06-18] MEDS: MIRALAX *UNIT DOSE* 17GM PACKET PO SCH (08:47)
[2016-06-18] MEDS: ASPIRIN 81 MG ENTERIC TAB PO SCH (08:48)
[2016-06-18] MEDS: SENOKOT S TAB PO SCH ×2 (08:48→20:13)
[2016-06-18] MEDS: GABAPENTIN 300 MG CAP PO SCH ×3 (08:48→20:13)
[2016-06-18] MEDS: tiZANidine 4 MG TAB PO SCH ×3 (08:48→20:13)
[2016-06-18] MEDS: KETOROLAC TROMETHAMINE 10 MG TAB PO SCH ×3 (08:49→20:12)
[2016-06-18] MEDS: oxyCODONE 15 MG CR TAB PO SCH ×2 (08:49→20:13)
[2016-06-18] MEDS: METOPROLOL TART 12.5 MG PER 1/2 TAB PO SCH ×2 (08:52→20:12)
[2016-06-18] MEDS: amLODIPine 5 MG TAB PO SCH (08:53)
[2016-06-18] MEDS: SODIUM CHLORIDE 0.9% INJ 10 ML SYR IV PRN ×2 (10:22→20:52)
--- NOTE | 2016-06-18 11:05 | IPNPDOC ---
Assessment/Plan Date Seen The patient was seen on 06/18/16. Plan / VTE VTE Prophylaxis Ordered?: Yes Plan Plan Text Discitis and osteomyelitis at the L5-S1 level. MRI of lumbar spine noted Dr. Kiser from infectious disease was consulted status post CT guided biopsy. Cultures unrevealing thus far. Neurosurgery, Dr. Heredia, was consulted--> He discussed with the patient and myself that a surgical intervention carries significant risk of vertebral instabilities. Also, given the fact that the patient has an active infection, the patient would be ineligible for any hardware placement for stabilization A second opinion was also sought from Dr. Govea of spinal surgery, and his input is appreciated In addition, Dr. Noonan did reach out to Dr. Cavazos of [facility] neurosurgery for an additional opinion-and he agreed with the neurosurgical management here, and states that there is no need for acute surgery at this time. Continue neurologic checks. Bladder scans. Continue Physical therapy At this time we will continue the patient on Teflaro as per ID Pain management input noted-we will continue to titrate the patient's pain medications History of hypertension. Continue home medication. Dyslipidemia. Continue home medication. Back pain. Continue medication as ordered. Pain management on board, we will reach out to them today once again regarding further recommendations as the patient reports that the current pain regimen is not controlling his pain adequately. Gastroesophageal reflux disease (GERD). Continue proton pump inhibitor Deep venous thrombosis (DVT) prophylaxis. Heparin subcutaneous. DISPOSITION PLANNING: We will continue with medical management of the patient' s discitis/osteomyelitis. We will follow up with infectious disease recommendations for outpatient IV antibiotic infusion. In the meantime, we will reach out to pain management regarding recommendations for further titration of the patient's pain medications, as he is stating that his pain is not well controlled at this time. Subjective Review of Systems CC/HPI The patient is a 61-year-old male admitted with a reason for visit of Discitis Of [place] Region. General: Denies: Chills, Night Sweats Constitutional: Denies: Chills, Fever Eyes: Denies: Pain, Vision change ENT: Denies: Ear Pain, Head Aches Skin: Denies: Lesions, Rash Pulmonary: Denies: Cough, Dyspnea Cardiovascular: Denies: Chest Pain, Palpitations Gastrointestinal: Denies: Abdominal Pain, Nausea, Vomiting Hematologic: Denies: Bleeding Excessively, Bruising Musculoskeletal: Reports: Back Pain Objective Physical Examination General Exam: Positive: Alert, Cooperative, No Acute Distress ENT Exam: Positive: Atraumatic, Mucous membr. moist/pink Chest Exam: Positive: Clear to auscultation, Normal air movement Heart Exam: Positive: Normal S1, Normal S2, Rate Normal Abdomen Exam: Positive: Soft, Negative: Tenderness Extremity Exam: Positive: Other (patient with limited range of motion on flexion and extension of the lumbar spine secondary to discitis/osteomyelitis), Negative: Edema Neuro Exam: Positive: Other (neurovascularly intact in the lower extremities, 5 out of 5 strength on hip flexion, knee flexion, and plantar/extensor function of the ankle joint. Sensory function intact. No cell anesthesia) Vital Signs/I&O Vital Signs Date Time Temp Pulse Resp B/P Pulse Ox O2 Delivery O2 Flow Rate FiO2 06/18/16 10:00 98.9 77 18 123/79 97 Room Air I&O- Last 24 Hours up to 6 AM 06/18/16 06:00 Intake Total 2500 ml Output Total 2800 ml Balance -300 ml Laboratory Data Labs 24H Laboratory Tests 2 06/18/16 06:41: Anion Gap 6L, C-Reactive Protein, Quantitative 1.98H, Blood Urea Nitrogen 15, Creatinine 0.99, Sodium Level 140, Potassium Level 4.3, Chloride Level 104, Carbon Dioxide Level 30, Calcium Level 8.8, Glomerular Filtration Rate > 60.0, Magnesium Level 2.1 CBC/BMP Laboratory Tests 06/18/16 06:41 Calcium Level 8.8, Red Blood Count 3.62 L, Mean Corpuscular Volume 87.1, Mean Corpuscular Hemoglobin 29.0, Mean Corpuscular Hemoglobin Concent 33.3, Red Cell Distribution Width 13.3 Microbiology Microbiology 06/10/16 Blood Culture - Final, Complete NO GROWTH AFTER 5 DAYS 06/11/16 Anaerobic Culture - Final, Complete 06/11/16 Gram Stain - Final, Complete 06/11/16 Abscess Culture - Final, Complete NORA STACK MD Jun 18, 2016 11:05
[2016-06-18] MEDS: ATORVASTATIN 20 MG TAB PO SCH (20:13)
[2016-06-19] VITALS (7 sets, daily range): BP systolic 131–171; BP diastolic 80–92
[2016-06-19] MEDS: SODIUM CHLORIDE 0.9% INJ 10 ML SYR IV SCH ×2 (05:08→17:16)
[2016-06-19] MEDS: MORPHINE 2 MG/ML 1ML SYRINGE IV PRN (05:08)
[2016-06-19 06:39] LABS: MEAN CORPUSCULAR HEMOGLOBIN 28.5 pg (27.0-33.0); MEAN CORPUSCULAR HGB CONC 32.3 g/dl (32.0-36.5); MEAN CORPUSCULAR VOLUME 88.3 fl (80.0-96.0); RED CELL DISTRIBUTION WIDTH 14.3 % (11.5-14.5); WHITE BLOOD COUNT 5.6 K/mm3 (4.0-10.0)
[2016-06-19 06:44] LABS: ANION GAP 6 MEQ/L (8-16); BLOOD UREA NITROGEN 15 MG/DL (7-18); CALCIUM LEVEL 8.9 MG/DL (8.5-10.1); CARBON DIOXIDE LEVEL 31 MEQ/L (21-32); CHLORIDE LEVEL 105 MEQ/L (98-107); CREATININE FOR GFR 0.92 MG/DL (0.70-1.30); GLOMERULAR FILTRATION RATE > 60.0 (>56); GLUCOSE, FASTING 92 MG/DL (70-105); MAGNESIUM LEVEL 2.2 MG/DL (1.8-2.4); POTASSIUM SERUM 4.3 MEQ/L (3.5-5.1); SODIUM LEVEL 142 MEQ/L (136-145)
[2016-06-19] MEDS: PERCOCET 5MG/325MG TAB PO PRN ×2 (07:15→13:41)
[2016-06-19] MEDS: HEPARIN SOD (PORCINE) 5000 UNITS/ML VIAL SQ SCH ×2 (07:49→20:05)
[2016-06-19] MEDS: SENOKOT S TAB PO SCH ×2 (07:49→20:06)
[2016-06-19] MEDS: KETOROLAC TROMETHAMINE 10 MG TAB PO SCH ×3 (07:50→20:06)
[2016-06-19] MEDS: METOPROLOL TART 12.5 MG PER 1/2 TAB PO SCH ×2 (07:50→20:05)
[2016-06-19] MEDS: amLODIPine 5 MG TAB PO SCH (07:51)
[2016-06-19] MEDS: GABAPENTIN 300 MG CAP PO SCH ×3 (07:51→20:06)
[2016-06-19] MEDS: ASPIRIN 81 MG ENTERIC TAB PO SCH (07:51)
[2016-06-19] MEDS: OMEPRAZOLE 20 MG CAP PO SCH (07:51)
[2016-06-19] MEDS: MIRALAX *UNIT DOSE* 17GM PACKET PO SCH (07:52)
[2016-06-19] MEDS: oxyCODONE 15 MG CR TAB PO SCH ×2 (07:52→20:06)
[2016-06-19] MEDS: tiZANidine 4 MG TAB PO SCH ×3 (07:53→20:07)
[2016-06-19] MEDS: CEFTAROLINE FOSAMIL 600 MG in D5W MINI-BAG PLUS 50 ML IV SCH ×2 (07:53→20:05)
[2016-06-19] MEDS ORDERED: PERCOCET 5MG/325MG TAB PO PRN (09:00)
[2016-06-19] MEDS: SODIUM CHLORIDE 0.9% INJ 10 ML SYR IV PRN ×2 (11:02→20:07)
--- NOTE | 2016-06-19 11:59 | IPNPDOC ---
Assessment/Plan Date Seen The patient was seen on 06/19/16. Plan / VTE VTE Prophylaxis Ordered?: Yes Plan Plan Text Discitis and osteomyelitis at the L5-S1 level. MRI of lumbar spine noted Dr. Kiser from infectious disease was consulted status post CT guided biopsy. Cultures unrevealing thus far. Neurosurgery, Dr. Heredia, was consulted--> He discussed with the patient and myself that a surgical intervention carries significant risk of vertebral instabilities. Also, given the fact that the patient has an active infection, the patient would be ineligible for any hardware placement for stabilization A second opinion was also sought from Dr. Govea of spinal surgery, and his input is appreciated In addition, Dr. Noonan did reach out to Dr. Cavazos of [facility] neurosurgery for an additional opinion-and he agreed with the neurosurgical management here, and states that there is no need for acute surgery at this time. Continue neurologic checks. Bladder scans. Continue Physical therapy At this time we will continue the patient on Teflaro and rifampin as per ID Pain management input noted-we will continue to titrate the patient's pain medications History of hypertension. Continue home medication. Dyslipidemia. Continue home medication. Back pain. Continue medication as ordered. I have increased the patient's long-acting opioid, OxyContin to 30 mg twice a day. In addition I have ordered Percocet one tablet by mouth when necessary for breakthrough pain. These recommendations were discussed with pain management. I have stressed to the patient the need to be patient with pain control, as he states that he continually pushes himself too hard physically and subsequently has breakthrough pain episodes. Gastroesophageal reflux disease (GERD). Continue proton pump inhibitor Deep venous thrombosis (DVT) prophylaxis. Heparin subcutaneous. DISPOSITION PLANNING: The patient has been set up with outpatient IV antibiotics, and he did have teaching services done this morning. Anticipate discharge in the next 24 hours. Subjective Review of Systems CC/HPI The patient is a 61-year-old male admitted with a reason for visit of Discitis Of [place] Region. General: Denies: Chills, Night Sweats Constitutional: Denies: Chills, Fever Eyes: Denies: Pain, Vision change ENT: Denies: Ear Pain, Head Aches Skin: Denies: Lesions, Rash Pulmonary: Denies: Cough, Dyspnea Cardiovascular: Denies: Chest Pain, Palpitations Gastrointestinal: Denies: Nausea, Vomiting Genitourinary: Denies: Dysuria, Frequency Hematologic: Denies: Bleeding Excessively, Bruising Musculoskeletal: Reports: Back Pain Objective Physical Examination General Exam: Positive: Alert, Cooperative, No Acute Distress ENT Exam: Positive: Atraumatic, Mucous membr. moist/pink Chest Exam: Positive: Clear to auscultation, Normal air movement Heart Exam: Positive: Normal S1, Normal S2, Rate Normal Abdomen Exam: Positive: Soft, Negative: Tenderness Extremity Exam: Positive: Other (patient with limited range of motion on flexion and extension of the lumbar spine secondary to discitis/osteomyelitis), Negative: Edema Neuro Exam: Positive: Other (neurovascularly intact in the lower extremities, 5 out of 5 strength on hip flexion, knee flexion, and plantar/extensor function of the ankle joint. Sensory function intact. No cell anesthesia) Vital Signs/I&O Vital Signs Date Time Temp Pulse Resp B/P Pulse Ox O2 Delivery O2 Flow Rate FiO2 06/19/16 10:00 96.9 74 18 151/83 98 Room Air I&O- Last 24 Hours up to 6 AM 06/19/16 06:00 Intake Total 2130 ml Output Total 2750 ml Balance -620 ml Laboratory Data Labs 24H Laboratory Tests 2 06/19/16 06:03: Anion Gap 6L, Blood Urea Nitrogen 15, Creatinine 0.92, Sodium Level 142, Potassium Level 4.3, Chloride Level 105, Carbon Dioxide Level 31, Calcium Level 8.9, Glomerular Filtration Rate > 60.0, Magnesium Level 2.2 CBC/BMP Laboratory Tests 06/19/16 06:03 Calcium Level 8.9, Red Blood Count 3.76 L, Mean Corpuscular Volume 88.3, Mean Corpuscular Hemoglobin 28.5, Mean Corpuscular Hemoglobin Concent 32.3, Red Cell Distribution Width 14.3 Microbiology Microbiology 06/10/16 Blood Culture - Final, Complete NO GROWTH AFTER 5 DAYS 06/11/16 Anaerobic Culture - Final, Complete 06/11/16 Gram Stain - Final, Complete 06/11/16 Abscess Culture - Final, Complete NORA STACK MD Jun 19, 2016 11:59
[2016-06-19] MEDS ORDERED: ALTEPLASE IV ONE (15:45)
[2016-06-19] MEDS ORDERED: ALTEPLASE 2 MG/2 ML IV ONE (16:30)
--- NOTE | 2016-06-19 17:21 | IPN ---
DATE: 06/19/2016 Mr. Ponce seems to be doing fairly well. He still complains of excruciating back pain. He stated that this morning it was terrible and he required morphine. He will be discharged home tomorrow. Pain clinic had been managing his pain control. He remained afebrile over the past 9 days. Temperature is 97.2, pulse 68, respirations 20, blood pressure 154/81, O2 sat 96% on room air. Heart: Normal S1-S2 with no murmurs. Abdomen is soft, nontender. Extremities: No clubbing, cyanosis or edema. Back: Tenderness at L4, L5, S1. Lungs are clear. LABORATORY DATA: White count is 5.6, hemoglobin 10.7, hematocrit 33.2, platelets 175. Sodium 142, potassium 4.3, chloride 105, bicarb 31, BUN 15, creatinine 0.92, glucose 92, calcium 8.9, magnesium 2.2, CRP 1.98 down from 4.07. Disc cultures have remained negative. Imaging study done on 06/16, MRI showed worsening of discitis and osteomyelitis of L5-S1 with a paravertebral phlegmon. There is also a diffuse disc bulge with compression of the thecal sac at left S1, but the patient has pain in the right side, right sciatica. IMPRESSION: 1. Discitis of L5-S1, on ceftaroline and rifampin, currently day #7. The patient will be treated with another 2 weeks of IV antibiotics and follow his clinical improvement. We told him that he will be having pain for a little while, possibly for a long time and he might not be able to work. He has been started on antibiotics on May 01 and therefore has received at least 6 weeks of antibiotics at this point. 2. Degenerative disc disease with discitis, followed by the pain clinic. Currently receiving Percocet as needed, OxyContin 30 mg by mouth twice a day, Toradol 10 mg by mouth three times a day, gabapentin 300 mg by mouth three times a day, and tizanidine by mouth three times a day. Will see the patient in followup in 2 weeks. The patient knows that the side effect of rifampin including orange urine. He is to avoid any alcohol. Follow up in my office in 2 weeks.
[2016-06-19] MEDS: ATORVASTATIN 20 MG TAB PO SCH (20:05)
[2016-06-20] MEDS: PERCOCET 5MG/325MG TAB PO PRN ×3 (00:15→14:25)
[2016-06-20 02:00] VITALS: BP 150/83
[2016-06-20] MEDS: SODIUM CHLORIDE 0.9% INJ 10 ML SYR IV SCH (05:03)
[2016-06-20 06:00] VITALS: BP 158/88
[2016-06-20 06:29] LABS: MEAN CORPUSCULAR HEMOGLOBIN 28.9 pg (27.0-33.0); MEAN CORPUSCULAR HGB CONC 32.8 g/dl (32.0-36.5); MEAN CORPUSCULAR VOLUME 87.9 fl (80.0-96.0); RED CELL DISTRIBUTION WIDTH 13.5 % (11.5-14.5); WHITE BLOOD COUNT 6.3 K/mm3 (4.0-10.0)
[2016-06-20 06:53] LABS: ANION GAP 8 MEQ/L (8-16); BLOOD UREA NITROGEN 16 MG/DL (7-18); CALCIUM LEVEL 9.2 MG/DL (8.5-10.1); CARBON DIOXIDE LEVEL 29 MEQ/L (21-32); CHLORIDE LEVEL 104 MEQ/L (98-107); CREATININE FOR GFR 0.96 MG/DL (0.70-1.30); GLOMERULAR FILTRATION RATE > 60.0 (>56); GLUCOSE, FASTING 92 MG/DL (70-105); MAGNESIUM LEVEL 2.2 MG/DL (1.8-2.4); POTASSIUM SERUM 4.6 MEQ/L (3.5-5.1); SODIUM LEVEL 141 MEQ/L (136-145)
[2016-06-20] MEDS ORDERED: ALTEPLASE 2 MG/2 ML IV SCH (08:00)
[2016-06-20] MEDS: MIRALAX *UNIT DOSE* 17GM PACKET PO SCH (08:26)
[2016-06-20] MEDS: HEPARIN SOD (PORCINE) 5000 UNITS/ML VIAL SQ SCH (08:26)
[2016-06-20] MEDS: CEFTAROLINE FOSAMIL 600 MG in D5W MINI-BAG PLUS 50 ML IV SCH (08:26)
[2016-06-20] MEDS: tiZANidine 4 MG TAB PO SCH (08:26)
[2016-06-20] MEDS: SENOKOT S TAB PO SCH (08:26)
[2016-06-20] MEDS: amLODIPine 5 MG TAB PO SCH (08:27)
[2016-06-20] MEDS: GABAPENTIN 300 MG CAP PO SCH (08:27)
[2016-06-20] MEDS: OMEPRAZOLE 20 MG CAP PO SCH (08:27)
[2016-06-20] MEDS: METOPROLOL TART 12.5 MG PER 1/2 TAB PO SCH (08:27)
[2016-06-20] MEDS: ASPIRIN 81 MG ENTERIC TAB PO SCH (08:27)
[2016-06-20] MEDS: KETOROLAC TROMETHAMINE 10 MG TAB PO SCH (08:28)
[2016-06-20] MEDS: oxyCODONE 15 MG CR TAB PO SCH (08:28)
[2016-06-20] MEDS ORDERED: ALTEPLASE IV ONE (09:00)
[2016-06-20 10:00] VITALS: BP 155/85
[2016-06-20] MEDS ORDERED: PERCOCET PO (11:27)
[2016-06-20] MEDS ORDERED: ZANA4TAB PO (11:27)
[2016-06-20] MEDS ORDERED: RIFA300C3 PO (11:27)
[2016-06-20] MEDS ORDERED: OXYC15TA66 PO (11:27)
[2016-06-20] MEDS ORDERED: CELE-19 PO (11:27)
--- NOTE | 2016-06-20 16:34 | DS.PDOC ---
Discharge Summary General Date of Admission Jun 10, 2016 at 18:27 Date of Discharge Jun 20, 2016 at 14:38 Specialist/Consultants Involve Dr. Govea of spinal surgery, Dr. Heredia of neurosurgery, of infectious diseases Discharge Summary PROCEDURES PERFORMED DURING STAY: None. COMPLICATIONS/CHIEF COMPLAINT: Discitis Of [place] Region ADMISSION DIAGNOSES: 1. . Discitis/osteomyelitis of L5-S1 2. . 3. . DISCHARGE DIAGNOSES: 1. . Discitis/osteomyelitis of L5-S1 2. . 3. . HISTORY OF PRESENT ILLNESS: 61-year-old male with past medical history of hypertension, dyslipidemia, GERD, and chronic back pain and recently diagnosed discitis during a hospitalization on April 28 2016 for which he was admitted 2 weeks for and discharged on IV vancomycin presented to the ER with a chief complaint of worsening back pain. The patient states that his back pain had been getting worse, and he had increased difficulty walking secondary to the pain. The patient denied any paresthesias, any urinary or bowel incontinence or retention, or any numbness and tingling in the genital area. In the ER, a MRI of the lumbar spine was done and this revealed findings consistent with discitis osteomyelitis at L5-S1 with associated paravertebral epidural enhancing soft tissue consistent with phlegmon. The patient was subsequently sent for a CT-guided biopsy. During hospitalization, the patient was started on IV Teflaro and a consult was placed for infectious diseases and neurosurgery. Dr. Heredia of neurosurgery did evaluate options including medical management and surgical intervention for the patient's osteomyelitis. However, given the patient's active infection a surgical intervention was deemed to be very high risk. A second opinion was also obtained from Dr. Govea of spinal surgery, as well as Dr. Cavazos of [facility] and from [facility]. At this time, after evaluating multiple options with numerous spinal/neurosurgeons the patient has decided to undergo medical management at this time. The patient will be discharged on 2 weeks of IV Teflaro and by mouth rifampin and he will follow-up with of infectious diseases as an outpatient for further evaluation. The patient has remained afebrile, with a normal white blood cell count, and with negative cultures during his time here. The patient was cleared by physical therapy to return home to previous level of care. The patient was advised that if he was to have any alarm symptoms such as urinary/bowel incontinence or retention, or any numbness and tingling in the genitalia region that he return to the ER. In addition, the patient's pain was managed with the assistance of pain management and his medications were titrated to the point where he is comfortable with his pain level. In addition, we did set him up for a follow-up appointment with a primary care physician. DISCHARGE MEDICATIONS: Please see below. ALLERGIES: Please see below. PHYSICAL EXAMINATION ON DISCHARGE: VITAL SIGNS: Please see below. General Exam: Positive: Alert, Cooperative, No Acute Distress ENT Exam: Positive: Atraumatic, Mucous membr. moist/pink Chest Exam: Positive: Clear to auscultation, Normal air movement Heart Exam: Positive: Normal S1, Normal S2, Rate Normal Abdomen Exam: Positive: Soft, Negative: Tenderness Extremity Exam: Positive: Other (patient with limited range of motion on flexion and extension of the lumbar spine secondary to discitis/osteomyelitis), Negative: Edema Neuro Exam: Positive: Other (neurovascularly intact in the lower extremities, 5 out of 5 strength on hip flexion, knee flexion, and plantar/extensor function of the ankle joint. Sensory function intact. No cell anesthesia) LABORATORY DATA: Please see below. IMAGING: MRI LUMBAR SPINE WITHOUT AND WITH CONTRAST: HISTORY: Discitis. CONTRAST: ProHance 20 mL. COMPARISON: 04/30/2016 and 05/07/2016. Decreased signal intensity on T2-weighted images is present in the L1-2 through L4-5 intervertebral discs. The discs are decreased in height. These findings are consistent with disc degeneration. A diffuse disc bulge is present at the L1-2 level. There is minimal compression of the thecal sac. The L1 nerves exit the neural foramina without compression. A diffuse disc bulge is present at the L2-3 level. There is minimal compression of the thecal sac. The L2 nerves exit the neural foramina without compression. A diffuse disc bulge is present at the L3-4 level. There is minimal compression of the thecal sac. The L3 nerves exit the neural foramina without compression. A diffuse disc bulge is present at the L4-5 level. There is hypertrophy of the ligamenta flava and posterior articulating facets. These findings produce minimal central canal stenosis. The L4 nerves exit the neural foramina without compression. Increased signal intensity on T2-weighted images is present in the L5-S1 intervertebral disc. The intervertebral disc is decreased in height. There is mild heterogeneous enhancement of the intervertebral disc and adjacent endplates of the L5 and S1 vertebral bodies. 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 Enhancing paravertebral and epidural soft tissue components are present. A diffuse disc bulge and small left paracentral and intraforaminal disc protrusion are present. There is mild compression of the thecal sac and left S1 nerve as it exits the thecal sac. There is hypertrophy of the posterior articulating facets. There is compression of the left L5 nerve in the neural foramen. The right L5 nerve exits the neural foramen without compression. The conus medullaris is normal in appearance terminating at the level of the L1 intervertebral disc. Hemangiomas are present in the T12, L1 and L4 vertebral bodies. There is an old compression fracture of the L1 vertebral body with minimal height loss. IMPRESSION: 1. Diffuse disc bulges at the L1-2 through L3-4 levels with minimal thecal sac compression. 2. Minimal central canal stenosis at the L4-5 level secondary to disc bulge, ligamentous and facet hypertrophy. 3. Findings consistent with discitis osteomyelitis at the L5-S1 level. This is associated with paravertebral and epidural enhancing soft tissue consistent with a phlegmon. A diffuse disc bulge and small left paracentral and intraforaminal disc protrusion are present. These findings produce mild compression of the thecal sac and left S1 nerve as it exits the thecal sac. VTE Prophylaxis ordered?: Yes DISCHARGE CONDITION: Medically stable DISPOSITION: 01 Home, Self-Care ACTIVITY: As tolerated DIET: 2 g low sodium diet ITEMS TO FOLLOWUP ON OUTPATIENT: 1. . Follow with primary care physician within one to 2 weeks 2. . Follow-up with infectious diseases in 2 weeks 3. . Follow-up with pain management within 1-2 weeks TIME SPENT ON DISCHARGE: Greater than 30 minutes. Vital Signs/I&Os Vital Signs Date Time Temp Pulse Resp B/P Pulse Ox O2 Delivery O2 Flow Rate FiO2 06/20/16 14:25 18 06/20/16 10:00 98.4 74 155/85 92 Room Air I&O- Last 24 Hours up to 6 AM 06/20/16 06:00 Intake Total 1440 ml Output Total 1200 ml Balance 240 ml Laboratory Data Labs 24H Laboratory Tests 2 06/20/16 06:15: Anion Gap 8, Blood Urea Nitrogen 16, Creatinine 0.96, Sodium Level 141, Potassium Level 4.6, Chloride Level 104, Carbon Dioxide Level 29, Calcium Level 9.2, Glomerular Filtration Rate > 60.0, Magnesium Level 2.2 CBC/BMP Laboratory Tests 06/20/16 06:15 Calcium Level 9.2, Red Blood Count 3.82 L, Mean Corpuscular Volume 87.9, Mean Corpuscular Hemoglobin 28.9, Mean Corpuscular Hemoglobin Concent 32.8, Red Cell Distribution Width 13.5 Microbiology Microbiology 06/10/16 Blood Culture - Final, Complete NO GROWTH AFTER 5 DAYS 06/11/16 Anaerobic Culture - Final, Complete 06/11/16 Gram Stain - Final, Complete 06/11/16 Abscess Culture - Final, Complete Medications Scheduled Amlodipine Besylate (Amlodipine Besylate) 5 Mg Tab 5 MG PO DAILY Aspirin (Aspir-81) 81 Mg Tab 81 MG PO DAILY Atorvastatin Calcium (Atorvastatin Calcium) 40 Mg Tab 40 MG PO QHS Celecoxib (Celebrex) 200 Mg Cap 200 MG PO BID Gabapentin (Neurontin) 300 Mg Cap 300 MG PO TID Metoprolol Tartrate (Metoprolol Tartrate) 12.5 Mg Halftab 12.5 MG PO BID Omeprazole (Omeprazole) 20 Mg Cap 20 MG PO DAILY Oxycodone HCl (Oxycontin) 15 Mg Tab 30 MG PO BID Rifampin (Rifampin) 300 Mg Cap 300 MG PO TID Tizanidine Hydrochloride (Zanaflex) 4 Mg Tab 4 MG PO TID Scheduled PRN Oxycodone/Acetaminophen (Percocet 5MG/325MG Tablet) 1 Tab Tab 1 TAB PO Q6HP PRN PRN SEVERE PAIN (PS 8-10) Allergies Coded Allergies: No Known Allergies (Unverified , 04/27/16) NORA STACK MD Jun 20, 2016 16:34
== END 2016-06-20 14:38 | disposition home or self-care (01) | DRG 347 ==
LOC: M ED 13:13 → M ED INP 18:27 → M PCU 20:48 → M MSPAV 06-17 14:22
PROVIDERS: ADMIT Internal Medicine; ATTEND Internal Medicine
PROC: 009U3ZX Drainage of Spinal Canal, Percutaneous Approach, Diagnostic (ICD-10-PCS; principal; 2016-06-11)
DX: M46.47 Discitis, unspecified, lumbosacral region (principal); M86.9 Osteomyelitis, unspecified; I10 Essential (primary) hypertension; E78.5 Hyperlipidemia, unspecified; K21.9 Gastro-esophageal reflux disease without esophagitis; Z79.899 Other long term (current) drug therapy; Z79.82 Long term (current) use of aspirin; Z87.891 Personal history of nicotine dependence; E66.9 Obesity, unspecified; M47.812 Spondylosis without myelopathy or radiculopathy, cervical region; M47.816 Spondylosis without myelopathy or radiculopathy, lumbar region

== ENCOUNTER → 2016-06-23 | Outpatient (REF) | payer BC ==
[~2016-06-23] MED LIST changes: +ASPI81TA85 PO; +ATOR40TA PO; +CELE-19 PO; +METO-346 PO; +NEUR300C PO; +OXYC15TA66 PO; +RIFA300C3 PO; +VANC10005 INJ
[2016-06-23 15:39] LABS: ALBUMIN 3.2 GM/DL (3.2-5.2); ALBUMIN/GLOBULIN RATIO 0.94 (1.00-1.93); ALKALINE PHOSPHATASE 132 U/L (45-117); ALT/SGPT 39 U/L (12-78); ANION GAP 9 MEQ/L (8-16); AST/SGOT 20 U/L (15-37); BILIRUBIN,TOTAL 0.3 MG/DL (0.2-1.0); BLOOD UREA NITROGEN 23 MG/DL (7-18); CALCIUM LEVEL 8.7 MG/DL (8.5-10.1); CARBON DIOXIDE LEVEL 27 MEQ/L (21-32); CHLORIDE LEVEL 104 MEQ/L (98-107); CREATININE FOR GFR 0.79 MG/DL (0.70-1.30); GLOMERULAR FILTRATION RATE > 60.0 (>56); GLUCOSE, FASTING 85 MG/DL (70-105); POTASSIUM SERUM 4.8 MEQ/L (3.5-5.1); SODIUM LEVEL 140 MEQ/L (136-145); TOTAL PROTEIN 6.6 GM/DL (6.4-8.2)
[2016-06-23 18:05] LABS: BASO % 0.4 % (0.0-1.0); EOS # 0.6 K/mm3 (0.0-0.50); EOS % 8.8 % (0.0-3.0); LARGE UNSTAINED CELL # 0.1 K/mm3 (0.0-0.4); LARGE UNSTAINED CELL % 1.8 % (0.0-4.0); LYMPH # 1.3 K/mm3 (1.5-4.5); LYMPH % 19.9 % (24.0-44.0); MEAN CORPUSCULAR HEMOGLOBIN 28.7 pg (27.0-33.0); MEAN CORPUSCULAR HGB CONC 32.4 g/dl (32.0-36.5); MEAN CORPUSCULAR VOLUME 88.6 fl (80.0-96.0); MONO # 0.5 K/mm3 (0.0-0.8); MONO % 7.4 % (0.0-5.0); NEUTROPHILS % 61.8 % (36.0-66.0); PLATELET COUNT, AUTOMATED 175 k/mm3 (150-450); RED CELL DISTRIBUTION WIDTH 13.5 % (11.5-14.5); WHITE BLOOD COUNT 6.5 K/mm3 (4.0-10.0)
== END ==
LOC: M LAB REF 14:33
PROVIDERS: ATTEND Internal Medicine Infectious Disease
DX: M46.40 Discitis, unspecified, site unspecified (principal)